=== PATIENT | male | born 1970 | race Caucasian/White ===

== ENCOUNTER 2018-03-26 18:15 | Inpatient (IN) | payer BC ==
[~2018-03-26] VITALS: Ht 193 cm; Wt 122.0 kg
[~2018-03-26 18:15] MED LIST: ATOR40TA PO; Amaryl2 MG PO; CYCL10; CYCL10 PO; Cinnamon500 MG PO; GABA300 PO; GABA600 PO; GEMF600 PO; GLIP2.5ER PO; Glucophage1000 MG PO; HYDR1TAB94; IBUP800 PO; INS70/30PN; INSULANPEN SC; K-Dur20 MEQ PO; LAVAP17G PO; LEVEMIR FL100 UNIT/1 SC; LISI5 PO; METF500; METF500 PO; METPRE4DP PO; Novolog Fl100 UNIT/1 SC; OMEP40CA12 PO; OXYC10ER; OXYC1TAB11 PO; PANT40 PO; Percocet 5-3251 EACH PO; SILD25T PO; SOMA350 MG PO; Spirulina500 MG PO; TURMERIC500 M2 PO; Vitamin B Comple1 EA PO; Zanaflex6 MG PO; [UNRECOGNIZED DRUG - OTHER] PO
[2018-03-26 19:20] LABS: BASOPHILS ABSOLUTE AUTO 0.06 K/mm3 (0.00-0.23); BASOPHILS PERCENT AUTO 0 % (0-2); EOSINOPHILS ABSOLUTE AUTO 0.15 K/mm3 (0.00-0.68); EOSINOPHILS PERCENT AUTO 1 % (0-6); Hematocrit 46.5 % (37.0-53.0); Hemoglobin 16.1 g/dL (13.5-17.5); IMMATURE GRAN ABSOLUTE AUTO 0.06 K/mm3 (0.00-0.10); IMMATURE GRAN PERCENT AUTO 0 % (0-1); LYMPHOCYTES PERCENT AUTO 21 % (21-46); MONOCYTES ABSOLUTE AUTO 0.78 K/mm3 (0.16-1.47); MONOCYTES PERCENT AUTO 5 % (4-13); Mean Corpuscular HGB 27.9 pg (26.0-34.0); Mean Corpuscular HGB Conc 34.6 g/dL (31.5-36.5); Mean Corpuscular Volume 80 fL (80-100); Mean Platelet Volume 11.1 fL (9.1-12.4); NEUTROPHILS ABSOLUTE AUTO 10.29 K/mm3 (1.96-9.15); NEUTROPHILS PERCENT AUTO 72 % (41-73); Platelet Count 233 K/mm3 (150-400); RDW Coefficient Variation 14.4 % (11.7-14.2); Red Blood Cell Count 5.78 M/mm3 (4.30-5.90); White Blood Cell Count 14.34 K/mm3 (4.00-11.30)
[2018-03-26 20:03] LABS: Alanine Aminotransfer (ALT/SGP 31 U/L (12-78); Albumin, Blood 3.7 g/dL (3.4-5.0); Albumin/Globulin Ratio 0.6 (0.8-1.8); Alk Phos 113 U/L (50-136); Anion Gap 13 mmol/L (6-16); Aspartate Aminotrans (AST/SGOT 61 U/L (12-37); Bilirubin, Total 1.2 mg/dL (0.1-1.0); Blood Urea Nitrogen 12 mg/dL (8-24); Bun/Creatinine Ratio 13.6 (12.0-20.0); CO2, Blood 21 mmol/L (21-32); Calcium, Blood 9.4 mg/dL (8.5-10.1); Chloride, Blood 99 mmol/L (98-108); Creatinine, Blood 0.88 mg/dL (0.60-1.20); Globulin, Blood 5.7 g/dL (2.2-4.0); Glomerular Filtration Rate >60 (60-); Glucose, Blood 223 mg/dL (70-99); Sodium, Blood 133 mmol/L (136-145); Total Protein, Blood 9.4 g/dL (6.4-8.2)
[2018-03-27] MEDS ORDERED: GLIP5 PO (00:59)
[2018-03-27] MEDS ORDERED: IBUP800 PO (01:00)
[2018-03-27] MEDS ORDERED: ACET500 PO (01:01)
[2018-03-27 02:10] LABS: Source, Urine Voided
[2018-03-27 02:16] LABS: Bilirubin, Urine Neg (Neg); Blood, Urine 2+ (Neg); Glucose Qualitative, Urine 2+ (Neg); Ketones, Urine 2+ (Neg); Leukocyte Esterase, Urine 1+ (Neg); Nitrite, Urine Neg (Neg); Protein, Urine 3+ (Neg); Specific Gravity, Urine 1.015 (1.003-1.022); Urobilinogen, Urine NORM (Normal)
[2018-03-27 02:22] LABS: Appearance, Urine Clear (Clear); Color, Urine Yellow (P-Yellow)
[2018-03-27 02:23] LABS: Bacteria Rare /hpf; Red Blood Cells, Urine 0-2 /hpf (0-2); Squamous Epithelial Cells Rare /hpf (Few)
[2018-03-27 04:34] LABS: BASOPHILS ABSOLUTE AUTO 0.04 K/mm3 (0.00-0.23); BASOPHILS PERCENT AUTO 0 % (0-2); EOSINOPHILS ABSOLUTE AUTO 0.18 K/mm3 (0.00-0.68); EOSINOPHILS PERCENT AUTO 1 % (0-6); Hematocrit 39.8 % (37.0-53.0); Hemoglobin 13.8 g/dL (13.5-17.5); IMMATURE GRAN ABSOLUTE AUTO 0.07 K/mm3 (0.00-0.10); IMMATURE GRAN PERCENT AUTO 1 % (0-1); LYMPHOCYTES ABSOLUTE AUTO 2.62 K/mm3 (0.84-5.20); LYMPHOCYTES PERCENT AUTO 19 % (21-46); MONOCYTES ABSOLUTE AUTO 0.95 K/mm3 (0.16-1.47); MONOCYTES PERCENT AUTO 7 % (4-13); Mean Corpuscular HGB 28.1 pg (26.0-34.0); Mean Corpuscular HGB Conc 34.7 g/dL (31.5-36.5); Mean Corpuscular Volume 81 fL (80-100); Mean Platelet Volume 10.8 fL (9.1-12.4); NEUTROPHILS ABSOLUTE AUTO 9.78 K/mm3 (1.96-9.15); NEUTROPHILS PERCENT AUTO 72 % (41-73); Platelet Count 168 K/mm3 (150-400); RDW Coefficient Variation 14.2 % (11.7-14.2); RDW Standard Deviation 41.7 fL (35.1-46.3); Red Blood Cell Count 4.91 M/mm3 (4.30-5.90); White Blood Cell Count 13.64 K/mm3 (4.00-11.30)
[2018-03-27 05:17] LABS: Triglycerides 1954 mg/dL (30-160)
[2018-03-27 06:43] LABS: Anion Gap 13 mmol/L (6-16); CO2, Blood 20 mmol/L (21-32); Chloride, Blood 106 mmol/L (98-108); Potassium, Blood 3.7 mmol/L (3.5-5.5); Sodium, Blood 139 mmol/L (136-145)
[2018-03-27 06:44] LABS: Alanine Aminotransfer (ALT/SGP 19 U/L (12-78); Albumin/Globulin Ratio 0.8 (0.8-1.8); Alk Phos 85 U/L (50-136); Aspartate Aminotrans (AST/SGOT 18 U/L (12-37); Bilirubin, Total 0.7 mg/dL (0.1-1.0); Blood Urea Nitrogen 9 mg/dL (8-24); Bun/Creatinine Ratio 11.7 (12.0-20.0); Calcium, Blood 7.8 mg/dL (8.5-10.1); Creatinine, Blood 0.77 mg/dL (0.60-1.20); Glomerular Filtration Rate >60 (60-); Glucose, Blood 190 mg/dL (70-99)
[2018-03-27 06:45] LABS: Amylase, Blood 34 U/L (25-115)
[2018-03-28 05:20] LABS: Albumin, Blood 2.7 g/dL (3.4-5.0); Anion Gap 6 mmol/L (6-16); Blood Urea Nitrogen 7 mg/dL (8-24); Bun/Creatinine Ratio 9.6 (12.0-20.0); CO2, Blood 27 mmol/L (21-32); Chloride, Blood 103 mmol/L (98-108); Creatinine, Blood 0.73 mg/dL (0.60-1.20); Glomerular Filtration Rate >60 (60-); Glucose, Blood 187 mg/dL (70-99); Phosphorus, Blood 2.4 mg/dL (2.5-4.9); Potassium, Blood 3.6 mmol/L (3.5-5.5); Sodium, Blood 136 mmol/L (136-145)
[2018-03-28 05:26] LABS: Triglycerides 1470 mg/dL (30-160)
[2018-03-28] MEDS ORDERED: ONDA4ODT SL (12:20)
== END 2018-03-28 13:29 | disposition home or self-care (01) | DRG 439 ==
LOC: ER 18:15 → MEDS 23:29 → ENPENDDIS 03-28 11:02 → MEDS 03-28 13:29
PROVIDERS: Emergency Medicine; Internal Medicine; Nurse Practitioner Acute Care
DX: K86.1 Other chronic pancreatitis (principal); K86.3 Pseudocyst of pancreas; E87.1 Hypo-osmolality and hyponatremia; E66.9 Obesity, unspecified; Z68.32 Body mass index [BMI] 32.0-32.9, adult; E78.1 Pure hyperglyceridemia; E11.9 Type 2 diabetes mellitus without complications
CPT/HCPCS: 36415; 74177; 80053; 80069; 81001; 82150; 82947; 83036; 83690; 84478; 85025; 87086; 94762; 96361; 96374; 96375; 96376; 99285-25; C9113; J1170; J1650; J2405; J3010; J7030; Q9967

== ENCOUNTER 2019-09-25 11:44 | Inpatient (IN) | payer BC ==
[~2019-09-25] VITALS: Ht 193 cm; Wt 113.4 kg
[~2019-09-25 11:44] MED LIST changes: +ACET500 PO; +GLIP5 PO; +ONDA4ODT SL
[2019-09-25 12:29] LABS: BASOPHILS ABSOLUTE AUTO 0.05 K/mm3 (0.00-0.23); BASOPHILS PERCENT AUTO 1 % (0-2); EOSINOPHILS ABSOLUTE AUTO 0.21 K/mm3 (0.00-0.68); EOSINOPHILS PERCENT AUTO 2 % (0-6); Hematocrit 44.3 % (37.0-53.0); Hemoglobin 16.5 g/dL (13.5-17.5); IMMATURE GRAN ABSOLUTE AUTO 0.06 K/mm3 (0.00-0.10); IMMATURE GRAN PERCENT AUTO 1 % (0-1); LYMPHOCYTES ABSOLUTE AUTO 2.19 K/mm3 (0.84-5.20); LYMPHOCYTES PERCENT AUTO 24 % (21-46); MONOCYTES ABSOLUTE AUTO 0.55 K/mm3 (0.16-1.47); MONOCYTES PERCENT AUTO 6 % (4-13); Mean Corpuscular HGB 30.7 pg (26.0-34.0); Mean Corpuscular HGB Conc 37.2 g/dL (31.5-36.5); Mean Corpuscular Volume 82 fL (80-100); Mean Platelet Volume 11.1 fL (9.1-12.4); NEUTROPHILS ABSOLUTE AUTO 6.07 K/mm3 (1.96-9.15); NEUTROPHILS PERCENT AUTO 67 % (41-73); Platelet Count 216 K/mm3 (150-400); RDW Coefficient Variation 14.2 % (11.7-14.2); RDW Standard Deviation 42.1 fL (35.1-46.3); Red Blood Cell Count 5.38 M/mm3 (4.30-5.90); White Blood Cell Count 9.13 K/mm3 (4.00-11.30)
[2019-09-25] MEDS ORDERED: INVOKANA300 MG PO (12:38)
[2019-09-25 13:06] LABS: Alanine Aminotransfer (ALT/SGP 36 U/L (12-78); Albumin, Blood 4.2 g/dL (3.4-5.0); Albumin/Globulin Ratio 0.9 (0.8-1.8); Alk Phos 127 U/L (50-136); Anion Gap 9 mmol/L (6-16); Aspartate Aminotrans (AST/SGOT 21 U/L (12-37); Bilirubin, Total 0.7 mg/dL (0.1-1.0); Blood Urea Nitrogen 12 mg/dL (8-24); Bun/Creatinine Ratio 18.3 (12.0-20.0); CO2, Blood 22 mmol/L (21-32); Calcium, Blood 9.6 mg/dL (8.5-10.1); Chloride, Blood 106 mmol/L (98-108); Creatinine, Blood 0.66 mg/dL (0.60-1.20); Globulin, Blood 4.9 g/dL (2.2-4.0); Glomerular Filtration Rate >60 (60-); Glucose, Blood 256 mg/dL (70-99); Potassium, Blood 4.1 mmol/L (3.5-5.5); Sodium, Blood 137 mmol/L (136-145); Total Protein, Blood 9.1 g/dL (6.4-8.2)
[2019-09-25 13:54] LABS: Magnesium, Blood 1.8 mg/dL (1.6-2.4); Triglycerides 675 mg/dL (30-160)
[2019-09-25] MEDS ORDERED: GLIP5 PO (16:16)
--- NOTE | 2019-09-25 17:57 | NUR ---
SHIFT SUMMARY NEW ER ADMIT WITH RECURRENT PANCREATITIS. NPO. PAIN MANAGED WITH DILAUDID POTATO PEELING MACHINE OPERATOR. INTERMITTENT NAUSEA, BUT NO EMESIS. IVF INFUSING PER ORDERS. SBA TO RESTROOM AND NEEDS HELP WITH LINES/CORDS. CONT BIOX IN PLACE. CALL LIGHT WITHIN REACH.
--- NOTE | 2019-09-26 00:07 | NUR ---
PATIENT BECAME NAUSEATED AND HAS BEEN DRY HEAVING FOR 10 MINS. HE DID NOT WANT ANY ANTIEMETICS AT FIRST, HAS NOW BEEN MEDICATED WITH ZOFRAN IV.
[2019-09-26 05:53] LABS: Hematocrit 43.3 % (37.0-53.0); Hemoglobin 15.2 g/dL (13.5-17.5); Mean Corpuscular HGB 29.7 pg (26.0-34.0); Mean Corpuscular HGB Conc 35.1 g/dL (31.5-36.5); Mean Platelet Volume 11.3 fL (9.1-12.4); Platelet Count 199 K/mm3 (150-400); RDW Coefficient Variation 14.6 % (11.7-14.2); Red Blood Cell Count 5.11 M/mm3 (4.30-5.90); White Blood Cell Count 12.62 K/mm3 (4.00-11.30)
[2019-09-26 05:54] LABS: Mean Corpuscular Volume 85 fL (80-100)
--- NOTE | 2019-09-26 06:41 | NUR ---
PATIENT HAD ONE OTHER EPISODE OF NAUSEA AND DRY HEAVES THIS AM. IV REGLAN WAS GIVEN WITH GOOD RESULTS. HE WAS ABLE TO HAVE A LARGE BM TODAY. HE IS VOIDING. CONTINUES WITH NPO. HE IS ABLE TO WALK TO THE BR WITHOUT ISSUES. NO ACUTE CHANGES.
[2019-09-26 08:26] LABS: Alanine Aminotransfer (ALT/SGP 25 U/L (12-78); Albumin, Blood 3.1 g/dL (3.4-5.0); Albumin/Globulin Ratio 0.8 (0.8-1.8); Alk Phos 89 U/L (50-136); Anion Gap 6 mmol/L (6-16); Aspartate Aminotrans (AST/SGOT 29 U/L (12-37); Bilirubin, Total 1.3 mg/dL (0.1-1.0); Blood Urea Nitrogen 9 mg/dL (8-24); Bun/Creatinine Ratio 18.4 (12.0-20.0); CO2, Blood 25 mmol/L (21-32); Calcium, Blood 7.2 mg/dL (8.5-10.1); Chloride, Blood 103 mmol/L (98-108); Creatinine, Blood 0.49 mg/dL (0.60-1.20); Glomerular Filtration Rate >60 (60-); Glucose, Blood 277 mg/dL (70-99); Magnesium, Blood 1.8 mg/dL (1.6-2.4); Potassium, Blood 4.1 mmol/L (3.5-5.5); Sodium, Blood 134 mmol/L (136-145); Total Protein, Blood 7.1 g/dL (6.4-8.2)
--- NOTE | 2019-09-26 18:38 | NUR ---
SUMMARY: NO ACUTE CHANGE TODAY. VSS,A/O. PT ABLE TO TOLERATE CLEAR LIQ DIET. HAS HAD NO COMPLAINT OF NAUSEA. DILAUDID ENTRY OPERATOR SEEMS TO BE MANAGING PAIN WELL. PT RESTED FOR MAJORITY OF THE DAY. NO SAFETY CONCERNS.
--- NOTE | 2019-09-26 19:36 | NUR ---
ASSUMED CARE. PT IS SLEEPING. SIG OTHER AT BEDSIDE READING. WILL RETURN WHEN PT AWAKES.
--- NOTE | 2019-09-26 21:24 | NUR ---
ASSUMED CARE OF PT, REPORT REC FROM SHAMA ECHEVARRIA. PT APPEARS TO BE SLEEPING IN BED, RESP E/U, CONT BIOX IN PLACE. WILL CONT TO MONITOR AND TX PER ORDERS.
[2019-09-27 04:52] LABS: Hematocrit 41.6 % (37.0-53.0); Hemoglobin 14.2 g/dL (13.5-17.5); Mean Corpuscular HGB 28.6 pg (26.0-34.0); Mean Corpuscular HGB Conc 34.1 g/dL (31.5-36.5); Mean Corpuscular Volume 84 fL (80-100); Mean Platelet Volume 11.1 fL (9.1-12.4); Platelet Count 172 K/mm3 (150-400); RDW Coefficient Variation 14.5 % (11.7-14.2); Red Blood Cell Count 4.96 M/mm3 (4.30-5.90); White Blood Cell Count 11.92 K/mm3 (4.00-11.30)
[2019-09-27 05:27] LABS: Albumin, Blood 2.8 g/dL (3.4-5.0); Anion Gap 10 mmol/L (6-16); Blood Urea Nitrogen 9 mg/dL (8-24); Bun/Creatinine Ratio 14.7 (12.0-20.0); CO2, Blood 20 mmol/L (21-32); Calcium, Blood 8.3 mg/dL (8.5-10.1); Chloride, Blood 109 mmol/L (98-108); Creatinine, Blood 0.61 mg/dL (0.60-1.20); Glomerular Filtration Rate >60 (60-); Glucose, Blood 185 mg/dL (70-99); Phosphorus, Blood 1.4 mg/dL (2.5-4.9); Potassium, Blood 3.6 mmol/L (3.5-5.5); Sodium, Blood 139 mmol/L (136-145)
--- NOTE | 2019-09-27 06:03 | NUR ---
PT VSS T/O NIGHT. PAIN MGD W/ACCOUNT SOLUTIONS ANALYST W/REP RELIEF. PT ALEN SMALL AMT CLEAR LIQ, NO C/O N/V. IVF CONT PER ORDERS. PT USING CALL LIGHT FOR ASSISTANCE, WILL CONT TO MONITOR UNTIL REP GIVEN TO ONCOMING RN.
--- NOTE | 2019-09-27 09:21 | NUR ---
TELE LANA'D AT [id number]
--- NOTE | 2019-09-27 18:22 | NUR ---
SUMMARY: PT SEEMED TO FEEL MUCH BETTER TODAY, TOOK A WALK AND SITTING UP IN ROOM. MEDICATED FOR PAIN X1 WITH TYLENOL. DENIED NAUSEA, TOLERATING FULL LIQ DIET. INDEPENDENT, VSS, A/O.PLAN IS POSSIBLE DC TOMORROW NO SAFETY CONCERNS AT THIS TIME.
[2019-09-28 04:49] LABS: BASOPHILS ABSOLUTE AUTO 0.06 K/mm3 (0.00-0.23); BASOPHILS PERCENT AUTO 1 % (0-2); EOSINOPHILS ABSOLUTE AUTO 0.31 K/mm3 (0.00-0.68); EOSINOPHILS PERCENT AUTO 3 % (0-6); Hematocrit 41.4 % (37.0-53.0); Hemoglobin 13.9 g/dL (13.5-17.5); IMMATURE GRAN ABSOLUTE AUTO 0.05 K/mm3 (0.00-0.10); IMMATURE GRAN PERCENT AUTO 1 % (0-1); LYMPHOCYTES ABSOLUTE AUTO 2.34 K/mm3 (0.84-5.20); LYMPHOCYTES PERCENT AUTO 23 % (21-46); MONOCYTES ABSOLUTE AUTO 0.68 K/mm3 (0.16-1.47); MONOCYTES PERCENT AUTO 7 % (4-13); Mean Corpuscular HGB 28.4 pg (26.0-34.0); Mean Corpuscular HGB Conc 33.6 g/dL (31.5-36.5); Mean Corpuscular Volume 85 fL (80-100); Mean Platelet Volume 10.9 fL (9.1-12.4); NEUTROPHILS ABSOLUTE AUTO 6.95 K/mm3 (1.96-9.15); NEUTROPHILS PERCENT AUTO 67 % (41-73); Platelet Count 173 K/mm3 (150-400); RDW Coefficient Variation 14.4 % (11.7-14.2); RDW Standard Deviation 44.1 fL (35.1-46.3); White Blood Cell Count 10.39 K/mm3 (4.00-11.30)
[2019-09-28 05:10] LABS: Alanine Aminotransfer (ALT/SGP 25 U/L (12-78); Albumin, Blood 2.7 g/dL (3.4-5.0); Albumin/Globulin Ratio 0.6 (0.8-1.8); Alk Phos 83 U/L (50-136); Anion Gap 8 mmol/L (6-16); Aspartate Aminotrans (AST/SGOT 17 U/L (12-37); Bilirubin, Total 0.7 mg/dL (0.1-1.0); Blood Urea Nitrogen 7 mg/dL (8-24); Bun/Creatinine Ratio 11.3 (12.0-20.0); CO2, Blood 22 mmol/L (21-32); Calcium, Blood 8.1 mg/dL (8.5-10.1); Chloride, Blood 106 mmol/L (98-108); Cholesterol 411 mg/dL (50-200); Creatinine, Blood 0.62 mg/dL (0.60-1.20); Globulin, Blood 4.7 g/dL (2.2-4.0); Glomerular Filtration Rate >60 (60-); Glucose, Blood 219 mg/dL (70-99); Potassium, Blood 3.5 mmol/L (3.5-5.5); Sodium, Blood 136 mmol/L (136-145); Total Protein, Blood 7.4 g/dL (6.4-8.2)
[2019-09-28 05:23] LABS: CHOL/HDL RATIO Unable to Calculate; LDL/HDL RATIO Unable to Calculate; Low Density Lipoprotein Chol Unable to Calculate mg/dL (0-110); Triglycerides 1003 mg/dL (30-160); Very Low Density Lipoprot Chol 201 mg/dL (6-32)
--- NOTE | 2019-09-28 06:31 | NUR ---
PT VSS T/O NIGHT. PT REP PAIN MINIMAL, MGD W/TYLENOL W/REP RELIEF. PT ALEN FULL LIQ PO, W/NO INC PAIN AFTER EATING. PT REP +FLATUS AND BM, IS VOIDING URINE W/O DIFFICULTY. PT UP INDEL IN ROOM, IS USING CALL LIGHT FOR ASSISTANCE, WILL CONT TO MONITOR UNTIL REP GIVEN TO ONCOMIGN RN.
[2019-09-28] MEDS ORDERED: ATOR20 PO (11:33)
[2019-09-28] MEDS ORDERED: Fenofibrate134 MG PO (11:33)
--- NOTE | 2019-09-28 13:12 | NUR ---
DISCHARGE PT EDUCATED ON AND RECEIVED PRINTED DC INSTRUCTIONS AND VERB AN UNDERSTANDING. NEW RX FAXED TO [facility]. IV DC'D. PT WAITING FOR RIDE HOME AND HAS ALL PERSONAL BELONGINGS.
== END 2019-09-28 14:21 | disposition home or self-care (01) | DRG 440 ==
LOC: ER 11:44 → SURS 15:47
PROVIDERS: Emergency Medicine; Internal Medicine; Nurse Practitioner Acute Care; ADMIT Family Medicine
DX: K85.90 Acute pancreatitis without necrosis or infection, unspecified (principal); I10 Essential (primary) hypertension; E11.69 Type 2 diabetes mellitus with other specified complication; E78.1 Pure hyperglyceridemia; E78.5 Hyperlipidemia, unspecified
CPT/HCPCS: 36415; 74019; 80053; 80061; 80069; 82947; 83036; 83605; 83690; 83735; 84478; 85025; 85027; 93005; 93010; 94762; 96372-59; 96374; 96375; 96376; 99285-25; A9270; J1170; J1650; J2405; J2765; J7030

== ENCOUNTER 2021-04-28 19:58 | Emergency (ER) | payer BC ==
[~2021-04-28] VITALS: Ht 193 cm; Wt 117.9 kg
[~2021-04-28 19:58] MED LIST changes: +ATOR20 PO; +Fenofibrate134 MG PO; +INVOKANA300 MG PO
[2021-04-28] MEDS ORDERED: BENZ100A PO (20:55)
== END 2021-04-28 21:09 | disposition home or self-care (01) ==
LOC: ER 19:58
DX: U07.1 COVID-19 (principal); E11.9 Type 2 diabetes mellitus without complications; Z88.8 Allergy status to other drugs, medicaments and biological substances; Z91.09 Other allergy status, other than to drugs and biological substances; Z79.84 Long term (current) use of oral hypoglycemic drugs; Z79.899 Other long term (current) drug therapy; Z87.891 Personal history of nicotine dependence
CPT/HCPCS: 99283; A9270

== ENCOUNTER 2021-05-03 14:08 | Inpatient (IN) | payer BC ==
[~2021-05-03] VITALS: Ht 193 cm; Wt 109.1 kg
[~2021-05-03 14:08] MED LIST changes: +BENZ100A PO
[2021-05-03 15:16] LABS: Hematocrit 41.7 % (37.0-53.0); Hemoglobin 14.1 g/dL (13.5-17.5); Mean Corpuscular HGB 27.2 pg (26.0-34.0); Mean Corpuscular HGB Conc 33.8 g/dL (31.5-36.5); Mean Corpuscular Volume 81 fL (80-100); Mean Platelet Volume 11.1 fL (9.1-12.4); NRBC ABSOLUTE 0.04 K/mm3 (0.00-0.02); NRBC Auto 0.4 /100 WBC (0.0-0.2); Platelet Count 236 K/mm3 (150-400); RDW Coefficient Variation 14.1 % (11.7-14.2); RDW Standard Deviation 41.9 fL (35.1-46.3); Red Blood Cell Count 5.18 M/mm3 (4.30-5.90); White Blood Cell Count 11.39 K/mm3 (4.00-11.30)
[2021-05-03 15:33] LABS: Alanine Aminotransfer (ALT/SGP 42 U/L (12-78); Albumin, Blood 2.6 g/dL (3.4-5.0); Albumin/Globulin Ratio 0.5 (0.8-1.8); Alk Phos 90 U/L (50-136); Anion Gap 12 mmol/L (6-16); Aspartate Aminotrans (AST/SGOT 31 U/L (12-37); Bilirubin, Total 0.7 mg/dL (0.1-1.0); Blood Urea Nitrogen 24 mg/dL (8-24); Bun/Creatinine Ratio 38.8 (12.0-20.0); CO2, Blood 23 mmol/L (21-32); Calcium, Blood 8.6 mg/dL (8.5-10.1); Chloride, Blood 99 mmol/L (98-108); Creatinine, Blood 0.62 mg/dL (0.60-1.20); Globulin, Blood 5.3 g/dL (2.2-4.0); Glomerular Filtration Rate >60 (60-); Glucose, Blood 326 mg/dL (70-99); Potassium, Blood 4.3 mmol/L (3.5-5.5); Sodium, Blood 134 mmol/L (136-145); Total Protein, Blood 7.9 g/dL (6.4-8.2)
[2021-05-03 16:19] LABS: BASOPHILS PERCENT MAN 0 % (0-2); EOSINOPHILS PERCENT MAN 0 % (0-6); LYMPHOCYTES % ATYPICAL MANUAL 2 % (0-0); LYMPHOCYTES PERCENT MAN 20 % (21-46); METAMYELOCYTE ABSOLUTE MAN 0.45 K/mm3 (0.00-0.00); METAMYELOCYTE PERCENT MAN 4 % (0-0); MONOCYTES ABSOLUTE MAN 0.22 K/mm3 (0.16-1.47); MONOCYTES PERCENT MAN 2 % (4-13); MYELOCYTE ABSOLUTE MAN 0.34 K/mm3 (0.00-0.00); MYELOCYTE PERCENT MAN 3 % (0-0); NEUTROPHILS ABSOLUTE MAN 7.85 K/mm3 (1.96-9.15); SEG NEUTROPHILS PERCENT MAN 69 % (41-73); TOTAL CELLS COUNTED 100
[2021-05-03] MEDS ORDERED: HUMALOG KW100 UNIT/1 SC (19:58)
[2021-05-04 05:36] LABS: Hematocrit 44.5 % (37.0-53.0); Hemoglobin 14.6 g/dL (13.5-17.5); Mean Corpuscular HGB 27.5 pg (26.0-34.0); Mean Corpuscular HGB Conc 32.8 g/dL (31.5-36.5); Mean Corpuscular Volume 84 fL (80-100); Mean Platelet Volume 10.9 fL (9.1-12.4); NRBC ABSOLUTE 0.02 K/mm3 (0.00-0.02); NRBC Auto 0.2 /100 WBC (0.0-0.2); Platelet Count 273 K/mm3 (150-400); RDW Coefficient Variation 14.3 % (11.7-14.2); RDW Standard Deviation 43.5 fL (35.1-46.3); White Blood Cell Count 10.55 K/mm3 (4.00-11.30)
[2021-05-04 06:02] LABS: Alanine Aminotransfer (ALT/SGP 36 U/L (12-78); Albumin, Blood 2.6 g/dL (3.4-5.0); Albumin/Globulin Ratio 0.5 (0.8-1.8); Alk Phos 92 U/L (50-136); Anion Gap 12 mmol/L (6-16); Aspartate Aminotrans (AST/SGOT 26 U/L (12-37); Bilirubin, Total 0.8 mg/dL (0.1-1.0); Blood Urea Nitrogen 27 mg/dL (8-24); Bun/Creatinine Ratio 45.9 (12.0-20.0); CO2, Blood 22 mmol/L (21-32); Calcium, Blood 8.9 mg/dL (8.5-10.1); Chloride, Blood 100 mmol/L (98-108); Creatinine, Blood 0.59 mg/dL (0.60-1.20); Globulin, Blood 5.6 g/dL (2.2-4.0); Glomerular Filtration Rate >60 (60-); Glucose, Blood 333 mg/dL (70-99); Potassium, Blood 4.4 mmol/L (3.5-5.5); Sodium, Blood 134 mmol/L (136-145); Total Protein, Blood 8.2 g/dL (6.4-8.2)
[2021-05-04 06:05] LABS: BAND PERCENT MAN 7 % (0-8); BASOPHILS PERCENT MAN 0 % (0-2); EOSINOPHILS PERCENT MAN 1 % (0-6); LYMPHOCYTES % ATYPICAL MANUAL 1 % (0-0); LYMPHOCYTES ABSOLUTE MAN 2.42 K/mm3 (0.84-5.20); LYMPHOCYTES PERCENT MAN 22 % (21-46); METAMYELOCYTE ABSOLUTE MAN 0.21 K/mm3 (0.00-0.00); METAMYELOCYTE PERCENT MAN 2 % (0-0); MONOCYTES ABSOLUTE MAN 0.52 K/mm3 (0.16-1.47); MONOCYTES PERCENT MAN 5 % (4-13); MYELOCYTE ABSOLUTE MAN 0.31 K/mm3 (0.00-0.00); MYELOCYTE PERCENT MAN 3 % (0-0); NEUTROPHILS ABSOLUTE MAN 6.96 K/mm3 (1.96-9.15); SEG NEUTROPHILS PERCENT MAN 59 % (41-73); TOTAL CELLS COUNTED 100
--- NOTE | 2021-05-04 19:16 | NUR ---
SHIFT SUMMARY PT IS AO. PT DENIES PAIN, N/V, SOB. PT TO HAVE CT STUDY AFTE AC IV ACCESS OBTAINED. PT REMAINS ON 8 L O2 VIA OXYMIZER. ENHANCED ISOLATION PRECAUTIONS MAINTAINED T/O SHIFT. PT IS SBA IN ROOM. PT IS IN BED, CALL LIGHT IN REACH, LOW POSITION.
--- NOTE | 2021-05-05 05:48 | NUR ---
SHIFT SUMMARY A/OX4, ANXIOUS R/T INCREASED OXYGEN NEEDS. CURRENTLY ON 15L NRB AND HIFLOW NC. ATTEMPTED TO WEAN OFF NRB WITH SATS DECREASING TO MID 80S. WILL CONTINUE TO MONITOR AND REPORT TO ONCOMING RN.
--- NOTE | 2021-05-05 19:38 | NUR ---
SHIFT SUMMARY PT IS AOX4 AND PLEASANT. PT HAD CT TODAY. PT IS ON 10 L HIGH FLOW VIA NC WITH SATS GREATER THAN 90%. PT DENIES PAIN, N/V, SOB. ENHANCED ISOLATION PRECAUTIONS MAINTAINED T/O SHIFT. PT ONE ASSIST TO BCC. PT IS IN BED, CALL LIGHT IN REACH, LOW POSITION.
--- NOTE | 2021-05-06 05:25 | NUR ---
SHIFT SUMMARY NO ACUTE CHANGES THIS SHIFT, NO C/O ANY KIND, REMAINS ON 10L O2 MAINT[place] SATS MID 90'S T/O THE NIGHT, SLEPT T/O THE NIGHT & SLEEPING AT THIS TIME, CALL LIGHT IN REACH, WILL CONT TO MONITOR UNTIL REPORT GIVEN TO DAY RN.
--- NOTE | 2021-05-06 07:15 | NUR ---
ASSUMED CARE RECEIVED REPORT FROM SHAMA PRABHAKAR. PT RESTING, IN NAD. NO ACUTE NEEDS ASSESSED. CALL LIGHT IN [facility].
--- NOTE | 2021-05-06 14:45 | NUR ---
TRANSFER OF CARE REPORT GIVEN TO SHAMA SMALLS. PT RESTING, IN NAD. NO ACUTE NEEDS OR CONCERNS NOTED. CALL LIGHT, POSSESSIONS IN REACH.
--- NOTE | 2021-05-07 04:38 | NUR ---
SHIFT SUMMARY NO ACUTE CHANGES THIS SHIFT, NO C/O ANY KIND, VSS, CBS'S REMAIN HIGH- REC ORDER FOR 4U AT BEDTIME FOR TDZ=918, SLEPT T/O THE NIGHT & SLEEPING AT THIS TIME, CALL LIGHT IN REACH, WILL CONT TO MONITOR UNTIL REPORT GIVEN TO DAY RN.
--- NOTE | 2021-05-07 14:31 | NUR ---
Spiritual Care visit conducted. Provided conversation and companionship. The patient was appreciative of both as he said he is "getting stir crazy" and has a lot to do once he gets out of the hospital, as he has been contemplating some sizable life adjustments.
--- NOTE | 2021-05-07 19:22 | NUR ---
PATIENT IS ALERT AND ORIENTED. ON 8L O2 VIA NC. INDPENDENT TO BSC. NO C/O LEDBETTER.
--- NOTE | 2021-05-08 06:38 | NUR ---
SHIFT SUMMARY ASSUMED CARE OF PT AT 1900. PT IS A/OX4. HEART SOUNDS REGULAR, LUNG SOUNDS HAVE CRACKLES T/O. PT WAS TITRATED DOWN FROM 10L TO 6L NC. SATURATIONS REMAINED ABOVE 95%. PT USED THE URINAL. CALL LIGHT IN REACH, BED IN LOWEST POSITON.
[2021-05-08] MEDS ORDERED: INSULANPEN SC (09:48)
[2021-05-08] MEDS ORDERED: GUAI600T33 PO (09:48)
[2021-05-08] MEDS ORDERED: Aspir 8181 MG PO (09:48)
[2021-05-08] MEDS ORDERED: FAMO20 PO (09:48)
[2021-05-08] MEDS ORDERED: DECADRON6 M1 PO (09:49)
--- NOTE | 2021-05-08 10:43 | NUR ---
HOME O2 EVALUATION PT SATURATIONS 88% WHILE SITTING AT THE BEDSIDE ON RA. SATURATIONS DROPPED TO 84% WHILE WALKING ON RA. PT SATURATIONS 86% WHILE ON 2 L O2 VIA NC SITTING AT THE BEDSIDE. PT SATURATIONS 88% WHILE ON 4 L 02 VIA NC SITTING AT THE BEDSIDE. PT SATURATIONS 90% WHILE ON 6 L 02 VIA NC WHILE SITTING AT THE BEDSIDE FOR 5 MINUTES ON O2. PT SATURATIONS 92% WHILE ON 8 L O2 VIA NC WHILE SITTING AT THE BEDSIDE.
--- NOTE | 2021-05-08 11:38 | NUR ---
HOME 02 EVAL- PT RESTING IN BED OXYGEN TURNED OFF AT THIS TIME. PT SATS AT 88% ON ROOM AIR. 1L- 89%, 2L-89%, 3L 89%, 4L 89%, 5L 89% AND 6L 90%. PT AMBULATED IN ROOM ON 6L WITH SATS 89-90%.
--- NOTE | 2021-05-08 14:37 | NUR ---
PT DISCHARGE PT IS AOX4. PT IV REMOVED FROM LEFT AC PRIOR TO DC. DC INSTRUCTIONS REVIEWED WITH PT WHO VERBALIZED UNDERSTANDING. PT BELONGINGS GATHERED. PT DRESSED SELF IN HOME CLOTHING. PT ASSISTED OFF UNIT IN WHEELCHAIR. PT HAS LEFT BUILDING WITH HOME O2 TO PRIVATE VEHICLE.
== END 2021-05-08 14:09 | disposition home or self-care (01) | DRG 177 ==
LOC: ER 14:08 → MEDS 19:49
PROVIDERS: Physician Assistant; ADMIT Internal Medicine
PROC: 8E0ZXY6 Isolation (ICD-10-PCS; principal; 2021-05-03)
PROC: 3E0333Z Introduction of Anti-inflammatory into Peripheral Vein, Percutaneous Approach (ICD-10-PCS; 2021-05-04)
PROC: XW033E5 Introduction of Remdesivir Anti-infective into Peripheral Vein, Percutaneous Approach, New Technology Group 5 (ICD-10-PCS; 2021-05-04)
PROC: 5A0935A Assistance with Respiratory Ventilation, Less than 24 Consecutive Hours, High Flow/Velocity Cannula (ICD-10-PCS; 2021-05-05)
DX: U07.1 COVID-19 (principal); J12.82 Pneumonia due to coronavirus disease 2019; J96.01 Acute respiratory failure with hypoxia; J44.0 Chronic obstructive pulmonary disease with (acute) lower respiratory infection; E78.5 Hyperlipidemia, unspecified; R79.89 Other specified abnormal findings of blood chemistry; Z87.891 Personal history of nicotine dependence; Z90.49 Acquired absence of other specified parts of digestive tract; Z98.890 Other specified postprocedural states; Z79.84 Long term (current) use of oral hypoglycemic drugs; Z79.899 Other long term (current) drug therapy; Z88.8 Allergy status to other drugs, medicaments and biological substances; Z91.09 Other allergy status, other than to drugs and biological substances; I10 Essential (primary) hypertension; E11.65 Type 2 diabetes mellitus with hyperglycemia; R79.1 Abnormal coagulation profile
CPT/HCPCS: 36415; 71045; 71260; 80053; 82947; 83036; 84484; 85025; 85379; 86140; 93005; 93010; 94762; 96365; 96375; 99285-25; A9270; J1100; J1650; Q9967

== ENCOUNTER 2021-09-09 09:05 | Emergency (ER) | payer BC ==
[~2021-09-09] VITALS: Ht 193 cm; Wt 127.0 kg
[~2021-09-09 09:05] MED LIST changes: +Aspir 8181 MG PO; +DECADRON6 M1 PO; +FAMO20 PO; +GUAI600T33 PO; +HUMALOG KW100 UNIT/1 SC
[2021-09-09 10:01] LABS: Troponin I <0.015 ng/mL (0.000-0.040)
[2021-09-09 10:07] LABS: BASOPHILS ABSOLUTE AUTO 0.07 K/mm3 (0.00-0.23); BASOPHILS PERCENT AUTO 1 % (0-2); EOSINOPHILS ABSOLUTE AUTO 0.27 K/mm3 (0.00-0.68); EOSINOPHILS PERCENT AUTO 3 % (0-6); Hematocrit 43.8 % (37.0-53.0); Hemoglobin 15.1 g/dL (13.5-17.5); IMMATURE GRAN ABSOLUTE AUTO 0.07 K/mm3 (0.00-0.10); IMMATURE GRAN PERCENT AUTO 1 % (0-1); LYMPHOCYTES ABSOLUTE AUTO 3.44 K/mm3 (0.84-5.20); LYMPHOCYTES PERCENT AUTO 38 % (21-46); MONOCYTES ABSOLUTE AUTO 0.58 K/mm3 (0.16-1.47); MONOCYTES PERCENT AUTO 6 % (4-13); Mean Corpuscular HGB 28.6 pg (26.0-34.0); Mean Corpuscular HGB Conc 34.5 g/dL (31.5-36.5); Mean Corpuscular Volume 83 fL (80-100); Mean Platelet Volume 10.9 fL (9.1-12.4); NEUTROPHILS ABSOLUTE AUTO 4.66 K/mm3 (1.96-9.15); NEUTROPHILS PERCENT AUTO 51 % (41-73); Platelet Count 259 K/mm3 (150-400); RDW Standard Deviation 42.3 fL (35.1-46.3); Red Blood Cell Count 5.28 M/mm3 (4.30-5.90); White Blood Cell Count 9.09 K/mm3 (4.00-11.30)
[2021-09-09 10:48] LABS: Alanine Aminotransfer (ALT/SGP 40 U/L (12-78); Albumin, Blood 3.5 g/dL (3.4-5.0); Albumin/Globulin Ratio 0.8 (0.8-1.8); Alk Phos 114 U/L (50-136); Anion Gap 12 mmol/L (6-16); Aspartate Aminotrans (AST/SGOT 23 U/L (12-37); Bilirubin, Total 0.6 mg/dL (0.1-1.0); Blood Urea Nitrogen 17 mg/dL (8-24); Bun/Creatinine Ratio 31.8 (12.0-20.0); CO2, Blood 22 mmol/L (21-32); Calcium, Blood 8.7 mg/dL (8.5-10.1); Chloride, Blood 100 mmol/L (98-108); Creatinine, Blood 0.53 mg/dL (0.60-1.20); Globulin, Blood 4.4 g/dL (2.2-4.0); Glomerular Filtration Rate >60 (60-); Glucose, Blood 357 mg/dL (70-99); Potassium, Blood 3.9 mmol/L (3.5-5.5); Sodium, Blood 134 mmol/L (136-145); Total Protein, Blood 7.9 g/dL (6.4-8.2)
[2021-09-09] MEDS ORDERED: Omeprazole20 M1 PO (11:27)
== END 2021-09-09 12:01 | disposition home or self-care (01) ==
LOC: ER 09:05
PROVIDERS: Physician Assistant
DX: R07.9 Chest pain, unspecified (principal); E11.9 Type 2 diabetes mellitus without complications; E78.5 Hyperlipidemia, unspecified; I10 Essential (primary) hypertension; Z88.8 Allergy status to other drugs, medicaments and biological substances; Z79.4 Long term (current) use of insulin; Z79.899 Other long term (current) drug therapy; Z79.82 Long term (current) use of aspirin
CPT/HCPCS: 36415; 71046; 80053; 84484; 85025; 93005; 93010; 99284-25; A9270

== ENCOUNTER 2021-11-02 14:41 | Inpatient (IN) | payer BC ==
[~2021-11-02] VITALS: Ht 193 cm; Wt 126.7 kg
[~2021-11-02 14:41] MED LIST changes: +Omeprazole20 M1 PO
[2021-11-02 15:42] LABS: BASOPHILS ABSOLUTE AUTO 0.07 K/mm3 (0.00-0.23); BASOPHILS PERCENT AUTO 1 % (0-2); EOSINOPHILS ABSOLUTE AUTO 0.02 K/mm3 (0.00-0.68); EOSINOPHILS PERCENT AUTO 0 % (0-6); Hematocrit 46.6 % (37.0-53.0); Hemoglobin 16.6 g/dL (13.5-17.5); IMMATURE GRAN ABSOLUTE AUTO 0.07 K/mm3 (0.00-0.10); IMMATURE GRAN PERCENT AUTO 1 % (0-1); LYMPHOCYTES ABSOLUTE AUTO 1.31 K/mm3 (0.84-5.20); LYMPHOCYTES PERCENT AUTO 9 % (21-46); MONOCYTES ABSOLUTE AUTO 0.82 K/mm3 (0.16-1.47); MONOCYTES PERCENT AUTO 5 % (4-13); Mean Corpuscular HGB 28.5 pg (26.0-34.0); Mean Corpuscular HGB Conc 35.6 g/dL (31.5-36.5); Mean Corpuscular Volume 80 fL (80-100); Mean Platelet Volume 11.2 fL (9.1-12.4); NEUTROPHILS ABSOLUTE AUTO 13.19 K/mm3 (1.96-9.15); NEUTROPHILS PERCENT AUTO 85 % (41-73); Platelet Count 214 K/mm3 (150-400); RDW Coefficient Variation 14.2 % (11.7-14.2); RDW Standard Deviation 41.1 fL (35.1-46.3); Red Blood Cell Count 5.83 M/mm3 (4.30-5.90); White Blood Cell Count 15.48 K/mm3 (4.00-11.30)
[2021-11-02 16:53] LABS: Alanine Aminotransfer (ALT/SGP 41 U/L (12-78); Albumin, Blood 3.7 g/dL (3.4-5.0); Albumin/Globulin Ratio 0.7 (0.8-1.8); Alk Phos 111 U/L (50-136); Anion Gap 10 mmol/L (6-16); Aspartate Aminotrans (AST/SGOT 51 U/L (12-37); Bilirubin, Total 1.2 mg/dL (0.1-1.0); Blood Urea Nitrogen 12 mg/dL (8-24); Bun/Creatinine Ratio 27.6 (12.0-20.0); CO2, Blood 21 mmol/L (21-32); Chloride, Blood 98 mmol/L (98-108); Creatinine, Blood 0.43 mg/dL (0.60-1.20); Globulin, Blood 5.4 g/dL (2.2-4.0); Glomerular Filtration Rate >60 (60-); Glucose, Blood 387 mg/dL (70-99); Sodium, Blood 129 mmol/L (136-145); Total Protein, Blood 9.1 g/dL (6.4-8.2)
[2021-11-02 16:54] LABS: Potassium, Blood 4.9 mmol/L (3.5-5.5)
[2021-11-02 17:32] LABS: Source, Urine Clean Catch
[2021-11-02 17:35] LABS: Bilirubin, Urine Neg (Neg); Blood, Urine 1+ (Neg); Glucose Qualitative, Urine 4+ (Neg); Ketones, Urine 4+ (Neg); Leukocyte Esterase, Urine Neg (Neg); Nitrite, Urine Neg (Neg); Protein, Urine 3+ (Neg); Urobilinogen, Urine NORM (Normal)
[2021-11-02 17:41] LABS: Appearance, Urine Cloudy (Clear); Color, Urine Pale Yellow (P-Yellow)
[2021-11-02 17:42] LABS: Amorphous Light (0-Heavy); Bacteria Few /hpf; Mucus Light (0-Heavy); Squamous Epithelial Cells Rare /hpf (Few); White Blood Cells, Urine 0-2 /hpf (0-5)
[2021-11-02 19:26] LABS: Cholesterol 614 mg/dL (50-200); Triglycerides 2745 mg/dL (30-160)
[2021-11-02 20:05] LABS: Influenza A, PCR NEGATIVE (NEGATIVE); Influenza B, PCR NEGATIVE (NEGATIVE); Resp Syncytial Virus, PCR NEGATIVE (NEGATIVE); SARS-Cov-2 (COVID-19) PCR, MMC NEGATIVE (NEGATIVE)
--- NOTE | 2021-11-02 20:25 | NUR ---
ARRIVAL TO ICU PT BROUGHT TO ICU ON ED GURNEY. PT IS ABLE TO MOVE SELF FROM ED GURNEY TO ICU BED. HE IS ALERT AND ORIENTED. SPOUSE MAYE IS WITH HIM. CBG CHECKED AND INSULIN GTT STARTED AT 4UNITS/HR. C/O ABDOMINAL PAIN THROUGHOUT BUT WORSE PAIN IN LUQ AND LLQ. ABDOMEN DISTENDED AND FIRM/TENDER TO TOUCH. PT DENIES OTHER COMPLAINTS AT THIS TIME. HISTORY GATHERED FROM PT AND SPOUSE. VSS AT THIS TIME. SEE ASSESSMENT.
--- NOTE | 2021-11-02 21:32 | NUR ---
BELONGINGS MAYE TOOK PT'S DENTURES, WALLET AND WATCH HOME. OTHER BELONGINGS IN CUPBOARD.
--- NOTE | 2021-11-03 01:51 | NUR ---
UPDATE PT AWAKE AND SITTING AT EDGE OF BED. C/O NAUSEA AND BEGINS DRY HEAVING. MEDICATED WITH ZOFRAN PER EMAR. PT REMAINS ALERT AND ORIENTED. VERY PLEASANT AND PARTICIPATES IN CONVERSATION. PT IS KNOWLEDGEABLE ABOUT HIS HEALTH HISTORY AND CONDITION. HE DISCUSSES HOW SIMILAR TREATMENT PLAN WAS DONE DURING LAST ADMISSION. PT EXPRESSES FRUSTRATION REGARDING CUSTOMER SERVICES MANAGER CARE OPTIONS AND FEELING HIS CONCERNS ARE NOT ALWAYS HEARD. NAUSEA HAS RESOLVED AND PT LYING DOWN, DENIES ADDITIONAL NEEDS AT THIS TIME.
[2021-11-03 03:46] LABS: BASOPHILS ABSOLUTE AUTO 0.05 K/mm3 (0.00-0.23); BASOPHILS PERCENT AUTO 1 % (0-2); EOSINOPHILS ABSOLUTE AUTO 0.01 K/mm3 (0.00-0.68); EOSINOPHILS PERCENT AUTO 0 % (0-6); Hematocrit 44.1 % (37.0-53.0); Hemoglobin 15.4 g/dL (13.5-17.5); IMMATURE GRAN ABSOLUTE AUTO 0.03 K/mm3 (0.00-0.10); IMMATURE GRAN PERCENT AUTO 0 % (0-1); LYMPHOCYTES ABSOLUTE AUTO 1.53 K/mm3 (0.84-5.20); LYMPHOCYTES PERCENT AUTO 14 % (21-46); MONOCYTES ABSOLUTE AUTO 0.93 K/mm3 (0.16-1.47); MONOCYTES PERCENT AUTO 9 % (4-13); Mean Corpuscular HGB 27.9 pg (26.0-34.0); Mean Corpuscular HGB Conc 34.9 g/dL (31.5-36.5); Mean Corpuscular Volume 80 fL (80-100); Mean Platelet Volume 11.1 fL (9.1-12.4); NEUTROPHILS ABSOLUTE AUTO 8.17 K/mm3 (1.96-9.15); NEUTROPHILS PERCENT AUTO 76 % (41-73); Platelet Count 196 K/mm3 (150-400); RDW Coefficient Variation 14.3 % (11.7-14.2); RDW Standard Deviation 41.8 fL (35.1-46.3); Red Blood Cell Count 5.52 M/mm3 (4.30-5.90); White Blood Cell Count 10.72 K/mm3 (4.00-11.30)
[2021-11-03 04:30] LABS: Alanine Aminotransfer (ALT/SGP 55 U/L (12-78); Albumin, Blood 3.1 g/dL (3.4-5.0); Albumin/Globulin Ratio 0.8 (0.8-1.8); Alk Phos 75 U/L (50-136); Anion Gap 7 mmol/L (6-16); Aspartate Aminotrans (AST/SGOT 27 U/L (12-37); Bilirubin, Total 0.9 mg/dL (0.1-1.0); Blood Urea Nitrogen 14 mg/dL (8-24); Bun/Creatinine Ratio 25.7 (12.0-20.0); CO2, Blood 25 mmol/L (21-32); Calcium, Blood 7.6 mg/dL (8.5-10.1); Chloride, Blood 105 mmol/L (98-108); Creatinine, Blood 0.54 mg/dL (0.60-1.20); Globulin, Blood 3.7 g/dL (2.2-4.0); Glomerular Filtration Rate >60 (60-); Glucose, Blood 273 mg/dL (70-99); Potassium, Blood 3.3 mmol/L (3.5-5.5); Sodium, Blood 137 mmol/L (136-145)
[2021-11-03 04:32] LABS: Total Protein, Blood 6.8 g/dL (6.4-8.2)
[2021-11-03 05:09] LABS: Triglycerides 1941 mg/dL (30-160)
--- NOTE | 2021-11-03 05:54 | NUR ---
SHIFT SUMMARY PT REMAINS ALERT AND ORIENTED. HE HAS HAD CONTINUOUS ABDOMINAL PAIN THROUGHOUT NIGHT AND A FEW EPISODES OF NAUSEA. INSULIN GTT INFUSING AT 7UNITS/HR AND NS 100ML/HR. PLAN TO INFUSE 60MEQ KCL DUE TO POTASSIUM LEVEL THIS AM. PT REPOSITIONS SELF INDEPENDENTLY, SITS ON EDGE OF BED TO USE URINAL. WILL REPORT TO ONCOMING RN.
[2021-11-03] MEDS ORDERED: OMEP20ER PO (10:50)
[2021-11-03] MEDS ORDERED: FENO145 PO (10:50)
[2021-11-03] MEDS ORDERED: GLIP10ER PO (10:51)
[2021-11-03] MEDS ORDERED: ROSU10TA PO (10:51)
--- NOTE | 2021-11-03 12:13 | NUR ---
REASSESSMENT PT HAS BEEN RESTING IN BED THROUGHOUT THE MORNING, RESPOSITIONING HIMSELF. HIS PAIN HAS BEEN CONTROLLED WITH FENTANYL AND DILAUDID. LUNGS REMAIN CLEAR, ON RA. SR, BP STABLE. VOIDING INDEPENDENTLY. GOT MED LIST FROM PT'S THIS MORNING AND MED REC UPDATED. DR. ELLISON AND RONALD HAVE BEEN BY TO SEE PT. CONTINUE TO MONITOR.
[2021-11-03] MEDS ORDERED: TRESIBA FL200 UNIT/2 SQ (12:15)
[2021-11-03] MEDS ORDERED: GABA100 PO (12:16)
[2021-11-03] MEDS ORDERED: GEMF600 PO (12:17)
[2021-11-03] MEDS ORDERED: FISH OIL 1,2001 EAC1 PO (12:17)
[2021-11-03] MEDS ORDERED: LEVSOD112 PO (12:18)
[2021-11-03 14:20] LABS: Anion Gap 7 mmol/L (6-16); Blood Urea Nitrogen 11 mg/dL (8-24); CO2, Blood 23 mmol/L (21-32); Chloride, Blood 112 mmol/L (98-108); Creatinine, Blood 0.69 mg/dL (0.60-1.20); Glomerular Filtration Rate >60 (60-); Glucose, Blood 178 mg/dL (70-99); Potassium, Blood 3.8 mmol/L (3.5-5.5)
[2021-11-03 14:22] LABS: Sodium, Blood 142 mmol/L (136-145)
--- NOTE | 2021-11-03 16:45 | NUR ---
SHIFT SUMMARY PT HAS CONTINUED TO REST IN BED THROUGHOUT THE DAY. HE IS ABLE TO TURN FROM SIDE TO SIDE INDEPENDENTLY AND HAS BEEN DOING SO THROUGHOUT THE DAY. HE REMAINS ALERT AND ORIENTED. LUNGS CLEAR, RA, SR, BP STABLE. HE CONTINUES TO HAVE ABDOMINAL PAIN WHICH IS BEING TREATED WITH FENTANYL AND DILAUDID. HE IS VOIDING INDEPENDENTLY. INSULIN GTT STILL INFUSING, D5 1/2NS BEING TITRATED TO MAINTAIN BLOOD SUGARS 150-200. PT'S VISITED TODAY AND WAS UPDATED BY NURSING STAFF AND DR. BERMEO. 30 MINUTES SPENT IN THE ROOM WITH HER AND PT DISCUSSING PANCREATITIS, TRIGLYCERIDES, INSULIN TREATMENT FOR TRIGLYCERIDES, AND DIET.
[2021-11-03 17:56] LABS: Cholesterol 428 mg/dL (50-200); Triglycerides 1189 mg/dL (30-160)
--- NOTE | 2021-11-03 19:00 | NUR ---
ASSUMPTION OF CARE PT REMAINS ALERT AND ORIENTED. HE IS RECEIVING LR 100ML/HR, INSULIN GTT 8UNITS/HR, AND D5 1/2NS AT 140ML/HR. D5 1/2NS TO BE TITRATED ACCORDING TO CBGS TO KEEP INSULIN AT 8UNITS/HR. HE CONTINUES TO HAVE ABDOMINAL PAIN, DENIES OTHER DISCOMFORT. SEE SHIFT ASSESSMENT.
[2021-11-04 05:05] LABS: BASOPHILS ABSOLUTE AUTO 0.05 K/mm3 (0.00-0.23); BASOPHILS PERCENT AUTO 1 % (0-2); EOSINOPHILS ABSOLUTE AUTO 0.17 K/mm3 (0.00-0.68); EOSINOPHILS PERCENT AUTO 2 % (0-6); Hematocrit 38.7 % (37.0-53.0); Hemoglobin 13.1 g/dL (13.5-17.5); IMMATURE GRAN ABSOLUTE AUTO 0.03 K/mm3 (0.00-0.10); IMMATURE GRAN PERCENT AUTO 0 % (0-1); LYMPHOCYTES ABSOLUTE AUTO 2.07 K/mm3 (0.84-5.20); LYMPHOCYTES PERCENT AUTO 23 % (21-46); MONOCYTES ABSOLUTE AUTO 0.78 K/mm3 (0.16-1.47); MONOCYTES PERCENT AUTO 9 % (4-13); Mean Corpuscular HGB 27.9 pg (26.0-34.0); Mean Corpuscular HGB Conc 33.9 g/dL (31.5-36.5); Mean Corpuscular Volume 82 fL (80-100); Mean Platelet Volume 11.2 fL (9.1-12.4); NEUTROPHILS ABSOLUTE AUTO 5.87 K/mm3 (1.96-9.15); NEUTROPHILS PERCENT AUTO 65 % (41-73); Platelet Count 150 K/mm3 (150-400); RDW Coefficient Variation 14.7 % (11.7-14.2); RDW Standard Deviation 44.4 fL (35.1-46.3); White Blood Cell Count 8.97 K/mm3 (4.00-11.30)
[2021-11-04 06:02] LABS: Anion Gap 5 mmol/L (6-16); Blood Urea Nitrogen 8 mg/dL (8-24); Bun/Creatinine Ratio 12.1 (12.0-20.0); CO2, Blood 26 mmol/L (21-32); Calcium, Blood 7.7 mg/dL (8.5-10.1); Chloride, Blood 109 mmol/L (98-108); Cholesterol 380 mg/dL (50-200); Creatinine, Blood 0.66 mg/dL (0.60-1.20); Glomerular Filtration Rate >60 (60-); Glucose, Blood 147 mg/dL (70-99); Potassium, Blood 3.1 mmol/L (3.5-5.5); Sodium, Blood 140 mmol/L (136-145); Triglycerides 888 mg/dL (30-160)
--- NOTE | 2021-11-04 06:24 | NUR ---
SHIFT SUMMARY PT REMAINS ALERT AND ORIENTED. HE IS RECEIVING INSULIN GTT AT A SET RATE OF 8UNITS/HR AND D5 1/2NS AT 200ML/HR. HE WILL ALSO BE RECEIVING 80MEQ KCL THIS AM. PT CONTINUES TO HAVE ABDOMINAL PAIN ALL OVER BUT SHARP/STABBING PAIN IN LUQ. PT USES URINAL INDEPENDENTLY. VSS THROUGHOUT SHIFT. WILL REPORT TO ONCOMING RN.
--- NOTE | 2021-11-04 08:15 | NUR ---
INITIAL ASSESSMENT PATIENT ALERT AND ORIENTED X 4, AFEBRILE. PATIENT PLEASANT AND COOPERATIVE. PATIENT REPOSITIONING SELF IN BED AND STANDING AT SIDE OF BED TO USE URINAL INDEPENDENTLY. PATIENT GIVEN PRN FENTANYL FOR COMPLAINTS OF PAIN IN EPIGASTRIC AREA AND JUST LEFT OF EPIGASTRIC MIDLINE. PATIENT SATTING 90% AND GREATER ON RA. LUNGS CLEAR THROUGHOUT. PATIENT IN SR, HR IN THE 80S. SBP 90S TO LOW 100S. ABDOMEN MODERATELY DISTENDED, TENDER, WITH HYPERACTIVE BOWEL SOUNDS NOTED. DATE OF LAST BM NOT DOCUMENTED. WNL. SKIN APPEARS WNL. D5 DC'D THIS AM AND LR STARTED AT 200 MLS/ HOUR. INSULIN DRIP DC'D THIS AM. PATIENT STARTED ON LONG ACTING AND Q4 SLIDING SCALE INSULIN. PATIENT RECEIVING KCL REPLACEMENT FOR AM POTASSIUM OF 3.1. BED LOW, CALL LIGHT IN REACH. WILL CONTINUE TO MONITOR PATIENT FREQUENTLY THROUGHOUT SHIFT.
--- NOTE | 2021-11-04 12:00 | NUR ---
PATIENT AFEBRILE. NAPPING ON AND OFF. HR 80S TO 90S. SBP 90S TO 120S. URINE TEA COLORED. INSULIN DRIP AT 8 UNITS/ HOUR AND D5W 1/2 NS INFUSING AT 125 MLS/ HOUR. NO OTHER ACUTE CHANGES TO NOTE ON AT THIS TIME. WILL CONTINUE TO MONITOR.
[2021-11-04 13:45] LABS: Anion Gap 6 mmol/L (6-16); Blood Urea Nitrogen 7 mg/dL (8-24); Bun/Creatinine Ratio 10.8 (12.0-20.0); CO2, Blood 25 mmol/L (21-32); Calcium, Blood 7.8 mg/dL (8.5-10.1); Chloride, Blood 110 mmol/L (98-108); Creatinine, Blood 0.65 mg/dL (0.60-1.20); Glomerular Filtration Rate >60 (60-); Glucose, Blood 165 mg/dL (70-99); Potassium, Blood 3.5 mmol/L (3.5-5.5); Sodium, Blood 141 mmol/L (136-145)
--- NOTE | 2021-11-04 16:00 | NUR ---
PATIENT AFEBRILE. HR 80S TO 90S. SBP 120S TO 130S. INSULIN DRIP AT 6 UNITS/ HOUR, D5W 1/2 NS INFUSING AT 250 MLS/ HOUR. NO OTHER ACUTE CHANGES TO NOTE ON AT THIS TIME. WILL CONTINUE TO MONITOR.
[2021-11-04 16:16] LABS: Cholesterol 365 mg/dL (50-200); Triglycerides 755 mg/dL (30-160)
--- NOTE | 2021-11-04 18:34 | NUR ---
SHIFT SUMMARY PATIENT REMAINED ALERT AND ORIENTED X 4, AFEBRILE. PATIENT REMAINED CALM AND PLEASANT. PATIENT GIVEN PRN DILAUDID AND FENTANYL THROUGHOUT SHIFT TO HELP WITH PAIN IN EPIGASTRIC AREA AND JUST L OF EPIGASTRIC MIDLINE. PATIENT REMAINED SATTING 90% AND GREATER ON RA. PATIENT REMAINED IN SR, HR 80S TO 90S. SBP 90S TO 130S. ABDOMEN REMAINS MODERATELY DISTENDED, TENDER, WITH HYPERACTIVE BOWEL SOUNDS NOTED. NO BM THIS SHIFT. PATIENT CHANGED FROM NPO TO CLEAR LIQUID/ ADA DIET. PATIENT TOLERATING CLEAR LIQUIDS WELL. PATIENT VOIDED 900 MLS OF TEA COLORED URINE INTO URINAL INDEPENDENTLY. NO CHANGES TO SKIN NOTED. PATIENT REMAINS REPOSITIONING SELF IN BED. PATIENT REFUSED BED BATH. D5 1/2 NS INFUSING AT 150 MLS/ HOUR. INSULIN DRIP AT 6 UNITS/ HOUR. BLOOD SUGARS HAVE RANGED FROM 134 TO 156. PATIENT RECEIVED 60 MEQ IV KCL AND 40 MEQ PO KCL. BED LOW, CALL LIGHT IN REACH. REPORT WILL BE GIVEN TO ASSUMING BUSINESS SERVICES CLERK NURSE SHORTLY.
--- NOTE | 2021-11-04 19:15 | NUR ---
ASSUMPTION OF CARE PT CURRENTLY SLEEPING, WAKENS EASILY TO VERBAL STIMULI. HE IS RECEIVING INSULIN 6UNITS/HR, D5 1/2NS 250ML/HR, AND LR 10ML/HR. HE REMAINS ALERT AND ORIENTED, ON RA WITH SPO2 >93%. HE IS PLEASANT AND PARTICIPATES IN CONVERSATION. HE CONTINUES TO HAVE ABDOMINAL PAIN THAT IS IN THE EPIGASTRIC REGION AND LUQ/LLQ. SEE SHIFT ASSESSMENT.
[2021-11-05 05:42] LABS: BASOPHILS ABSOLUTE AUTO 0.04 K/mm3 (0.00-0.23); BASOPHILS PERCENT AUTO 1 % (0-2); EOSINOPHILS PERCENT AUTO 4 % (0-6); Hematocrit 36.7 % (37.0-53.0); Hemoglobin 12.1 g/dL (13.5-17.5); IMMATURE GRAN ABSOLUTE AUTO 0.05 K/mm3 (0.00-0.10); IMMATURE GRAN PERCENT AUTO 1 % (0-1); LYMPHOCYTES ABSOLUTE AUTO 1.74 K/mm3 (0.84-5.20); LYMPHOCYTES PERCENT AUTO 21 % (21-46); MONOCYTES ABSOLUTE AUTO 0.81 K/mm3 (0.16-1.47); MONOCYTES PERCENT AUTO 10 % (4-13); Mean Corpuscular HGB 27.4 pg (26.0-34.0); Mean Corpuscular Volume 83 fL (80-100); Mean Platelet Volume 11.4 fL (9.1-12.4); NEUTROPHILS ABSOLUTE AUTO 5.35 K/mm3 (1.96-9.15); NEUTROPHILS PERCENT AUTO 65 % (41-73); Platelet Count 145 K/mm3 (150-400); RDW Coefficient Variation 14.7 % (11.7-14.2); RDW Standard Deviation 44.5 fL (35.1-46.3); Red Blood Cell Count 4.42 M/mm3 (4.30-5.90); White Blood Cell Count 8.29 K/mm3 (4.00-11.30)
[2021-11-05 06:04] LABS: Anion Gap 7 mmol/L (6-16); Blood Urea Nitrogen 3 mg/dL (8-24); Bun/Creatinine Ratio 5.3 (12.0-20.0); CO2, Blood 24 mmol/L (21-32); Chloride, Blood 107 mmol/L (98-108); Cholesterol 293 mg/dL (50-200); Creatinine, Blood 0.56 mg/dL (0.60-1.20); Glomerular Filtration Rate >60 (60-); Glucose, Blood 173 mg/dL (70-99); Potassium, Blood 3.3 mmol/L (3.5-5.5); Sodium, Blood 138 mmol/L (136-145); Triglycerides 628 mg/dL (30-160)
--- NOTE | 2021-11-05 06:23 | NUR ---
SHIFT SUMMARY PT REMAINS ALERT AND ORIENTED. HE HAS SLEPT THROUGH MOST OF NIGHT AND WAKENS EASILY TO VERBAL STIMULI. HE REMAINS ON AN INSULIN GTT 8UNITS/HR, D5 1/2NS 250ML/HR, AND LR 10ML/HR. MEDICATED MULTIPLE TIMES THIS SHIFT FOR ABDOMINAL/EPIGASTRIC PAIN. TOLERATING SMALL AMOUNTS OF PO FLUIDS. HE USES THE URINAL INDEPENDENTLY AND HAS HAD ADEQUATE OUTPUT THAT IS TEA COLORED. VS REMAINED STABLE THROUGHOUT NIGHT. WILL REPORT TO ONCOMING RN.
--- NOTE | 2021-11-05 08:00 | NUR ---
INITIAL ASSESSMENT PATIENT ALERT AND ORIENTED X 4, AFEBRILE. PATIENT INDEPENDENT IN BED. PATIENT RECEIVING PRN PAIN MEDS FOR COMPLAINTS OF EPIGASTRIC AND L EPIGASTRIC PAIN. PATIENT SATTING 90% AND GREATER ON RA. LUNGS CLEAR T/O. ABDOMEN MODERATELY DISTENDED, TENDER, WITH HYPERACTIVE BOWEL SOUNDS NOTED. PATIENT ON CLEAR LIQUID DIET. NO BM SINCE HOSPITAL ADMIT. WNL. SKIN WNL. D5 1/2 NS INFUSING AT 200 MLS/ HOUR. INSULIN DRIP INFUSING AT 6 UNITS/ HOUR. LR TKO WITH INSULIN. BED LOW, CALL LIGHT IN REACH. WILL CONTINUE TO MONITOR PATIENT FREQUENTLY THROUGHOUT SHIFT.
--- NOTE | 2021-11-05 11:33 | NUR ---
PATIENT AFEBRILE. PATIENT GIVEN PRN PAIN MED FOR EPIGASTRIC PAIN. HR 80S TO 90S. SBP 130S TO 140S. BLOOD SUGAR 183. INSULIN DRIP AT 8 UNITS/ HOUR AND D5 1/2 NS AT 150 MLS/ HOUR. PATIENT HAD BM. PATIENT SAT IN CHAIR AND PERFORMED MOST OF THE BED/ SPONGE BATH. NO COMPLAINTS AT THIS TIME. WILL CONTINUE TO MONITOR.
[2021-11-05 13:41] LABS: Anion Gap 7 mmol/L (6-16); Blood Urea Nitrogen 3 mg/dL (8-24); Bun/Creatinine Ratio 4.9 (12.0-20.0); CO2, Blood 24 mmol/L (21-32); Calcium, Blood 8.3 mg/dL (8.5-10.1); Chloride, Blood 108 mmol/L (98-108); Creatinine, Blood 0.61 mg/dL (0.60-1.20); Glomerular Filtration Rate >60 (60-); Glucose, Blood 189 mg/dL (70-99); Potassium, Blood 3.5 mmol/L (3.5-5.5); Sodium, Blood 139 mmol/L (136-145)
--- NOTE | 2021-11-05 16:00 | NUR ---
PATIENT AFEBRILE. HR 70S TO 80S. SBP IN THE 120S. NO OTHER ACUTE CHANGES TO NOTE ON AT THIS TIME. WILL CONTINUE TO MONITOR.
[2021-11-05 17:37] LABS: Cholesterol 314 mg/dL (50-200); Triglycerides 586 mg/dL (30-160)
--- NOTE | 2021-11-05 18:30 | NUR ---
SHIFT SUMMARY PATIENT REMAINS ALERT AND ORIENTED X 4, AFEBRILE. PATIENT INDEPENDENT IN ROOM TO TOILET. PATIENT GIVEN PRN PAIN MEDS FOR COMPLAINTS OF EPIGASTRIC AND R EPIGASTRIC PAIN. PATIENT REMAINED ON RA. PATIENT REMAINED IN SR, HR 70S TO 90S. SBP 1-TEENS TO 170S. PATIENT INCREASED TO SOFT/ ADA DIET TODAY AND HAS BEEN TOLERATING WELL. PATIENT NOW HAVING LIQUID STOOLS. PATIENT VOIDED 1400 MLS URINE THIS SHIFT; URINE LIGHTENING IN COLOR. NO CHANGES NOTED TO SKIN. LAST TRIGYLCERIDE LEVEL AT 1700 WAS 586. INSULIN DRIP TO CONTINUE THROUGH NIGHT. INSULIN DRIP CURRENTLY AT 7 UNITS/ HOUR. D5W 1/2 NS INFUSING AT 150 MLS/ HOUR. LR REMAINS TKO WITH INSULIN. PATIENT HAD BED BATH THIS SHIFT. CAME TO VISIT. PATIENT HAS NO COMPLAINTS AT THIS TIME. BED LOW, CALL LIGHT IN REACH. REPORT WILL BE GIVEN TO ASSUMING CIVIL DIVISION COMMANDER DEPUTY SHERIFF NURSE SHORTLY.
--- NOTE | 2021-11-05 20:19 | NUR ---
ASSUMED CARE RECEIVED REPORT FROM SHAMA AGOSTO AT 1900. PT SLEEPING BUT AROUSES EASILY TO VOICE. A/O X4, AFEBRILE, ON ROOM AIR, SPO2 >92%. HR IS SR, RATE IN 80'S. BP STABLE. PT IS ABLE TO AMBULATED INDEPENDENT IN ROOM, STANDS AT BEDSIDE TO USE URINAL. HE COMPLAINS OF EPIGASTRIC PAIN AND PAIN TO LEFT OF EPIGASTRIC REGION. WILL MEDICATE PER EMAR WHEN DUE. INSULIN TO REMAIN BETWEEN 6-8, CURRENTLY AT 7UNITS/HR. D5 1/2 NS AT 150ML/HR, MAX 250ML/HR, TO MAINTAIN CBG'S OF 150-200. MOST RECENT CBG OF 163. 20G IN RIGHT AC, 18G IN DAMEON, AND PG IN DAMEON. INSULIN GTT TO REMAIN ON UNTIL TRIGLYCERIDE LEVELS ARE BELOW 500, MOST RECENT OF 586. ORDERS REVIEWED AND WILL TREAT PRESCRIBED.
[2021-11-06 03:42] LABS: BASOPHILS ABSOLUTE AUTO 0.04 K/mm3 (0.00-0.23); BASOPHILS PERCENT AUTO 1 % (0-2); EOSINOPHILS ABSOLUTE AUTO 0.28 K/mm3 (0.00-0.68); EOSINOPHILS PERCENT AUTO 4 % (0-6); Hematocrit 35.2 % (37.0-53.0); Hemoglobin 11.7 g/dL (13.5-17.5); IMMATURE GRAN ABSOLUTE AUTO 0.05 K/mm3 (0.00-0.10); IMMATURE GRAN PERCENT AUTO 1 % (0-1); LYMPHOCYTES ABSOLUTE AUTO 2.24 K/mm3 (0.84-5.20); LYMPHOCYTES PERCENT AUTO 30 % (21-46); MONOCYTES ABSOLUTE AUTO 0.71 K/mm3 (0.16-1.47); MONOCYTES PERCENT AUTO 10 % (4-13); Mean Corpuscular HGB 27.4 pg (26.0-34.0); Mean Corpuscular HGB Conc 33.2 g/dL (31.5-36.5); Mean Corpuscular Volume 82 fL (80-100); NEUTROPHILS ABSOLUTE AUTO 4.05 K/mm3 (1.96-9.15); NEUTROPHILS PERCENT AUTO 55 % (41-73); Platelet Count 143 K/mm3 (150-400); RDW Coefficient Variation 14.5 % (11.7-14.2); RDW Standard Deviation 43.6 fL (35.1-46.3); Red Blood Cell Count 4.27 M/mm3 (4.30-5.90); White Blood Cell Count 7.37 K/mm3 (4.00-11.30)
--- NOTE | 2021-11-06 04:06 | NUR ---
PT SLEEPING AT THIS TIME. D5 1/2NS INCREASED TO 200ML/HR AND INSULIN GTT CONTINUES AT 7 UNITS/HR. MOST RECENT CBG OF 138. VSS.
[2021-11-06 04:08] LABS: Alanine Aminotransfer (ALT/SGP 27 U/L (12-78); Albumin, Blood 2.4 g/dL (3.4-5.0); Albumin/Globulin Ratio 0.6 (0.8-1.8); Alk Phos 59 U/L (50-136); Anion Gap 4 mmol/L (6-16); Aspartate Aminotrans (AST/SGOT 21 U/L (12-37); Bilirubin, Total 0.6 mg/dL (0.1-1.0); Blood Urea Nitrogen 4 mg/dL (8-24); Bun/Creatinine Ratio 6.2 (12.0-20.0); CO2, Blood 26 mmol/L (21-32); Calcium, Blood 8.4 mg/dL (8.5-10.1); Chloride, Blood 110 mmol/L (98-108); Cholesterol 265 mg/dL (50-200); Creatinine, Blood 0.65 mg/dL (0.60-1.20); Globulin, Blood 3.9 g/dL (2.2-4.0); Glomerular Filtration Rate >60 (60-); Glucose, Blood 158 mg/dL (70-99); Potassium, Blood 3.2 mmol/L (3.5-5.5); Sodium, Blood 140 mmol/L (136-145); Total Protein, Blood 6.3 g/dL (6.4-8.2); Triglycerides 479 mg/dL (30-160)
--- NOTE | 2021-11-06 04:22 | NUR ---
CALL TO DR. SWANSON RE: POTASSIUM OF 3.2. ORDERS GIVEN FOR 40 MEQ PO X1. ALSO RELAYED TRIGLYCERIDE LEVEL OF 479. INSULIN AND D5 1/2NS TO REMAIN ON UNTIL NEXT TRIGLYCERIDE CHECK, INSULIN GTT AT 7 UNITS, D5 1/2NS AT 200ML/HR. WILL CONTINUE TO TITRATE PER PARAMETERS AND Q2H CBG CHECKS.
--- NOTE | 2021-11-06 06:50 | NUR ---
SHIFT SUMMARY PT SLEPT OFF AND ON THIS SHIFT. REMAINS COOPERATIVE AND A/O X4. INSULIN GTT REMAINS ON AT 7 UNITS/HR AND D5 1/2 NS AT 200ML/HR. LR AT 10ML/HR FOR TKO WITH INSULIN. CBG'S REMAINED STABLE T/O THE NIGHT. TRIGLYCERIDES NOW <500. VSS, ON ROOM AIR. MEDICATED WITH PRN DILAUDID AND FENTANYL PER EMAR FOR EPIGASTRIC PAIN. 40MEQ PO POTASSIUM REPLACEMENT GIVEN THIS AM. AFEBRILE AND NO ACUTE CHANGES THIS SHIFT. WILL REPORT TO ONCOMING SHIFT.
--- NOTE | 2021-11-06 07:15 | NUR ---
DR. BERMEO CALLED THIS AM RE: NEW ORDERS WITH INSULIN. HE WOULD LIKE THE INSULIN GTT AND D5 1/2 NS TO REMAIN ON AT CURRENT RATES FOR 90 MINUTES FOLLOWING SUBQ ADMINISTRATION OF INSULIN. RECHECK THE CBG AFTER THE 90 MINUTES, AND IF STABLE, MAY CHANGE CBG TO Q4H AFTER. HE IS WANTING TO MAKE SURE HIS DIET IS ALSO LOW FAT/CHOLESTEROL D/T ELEVATED TRIGLYCERIDES. MAY STATUS CHANGE TO MEDICAL AFTER INSULIN GTT IS OFF.
[2021-11-06 13:19] LABS: Anion Gap 6 mmol/L (6-16); Blood Urea Nitrogen 4 mg/dL (8-24); Bun/Creatinine Ratio 6.7 (12.0-20.0); CO2, Blood 23 mmol/L (21-32); Calcium, Blood 8.9 mg/dL (8.5-10.1); Chloride, Blood 109 mmol/L (98-108); Glomerular Filtration Rate >60 (60-); Glucose, Blood 218 mg/dL (70-99); Potassium, Blood 4.2 mmol/L (3.5-5.5); Sodium, Blood 138 mmol/L (136-145)
--- NOTE | 2021-11-06 17:07 | NUR ---
SUMMARY PT A/O X4. INDEP IN ROOM. PT WAS ON INSULIN AND D5 1/2NS THIS AM. LONG ACTING INSULIN GIVEN THIS AM THEN INSULIN AND D5 TURNED OFF. PT C/O EPIGASTRIC PAIN. PT STATES THIS HAS BEEN GOING ON FOR MONTHS. DENIES ANY RADIATING PAIN TO NECK, ARM, OR JAW. NO RHYTHM CHANGES. EKG DONE AND NORMAL. TROPONINS NEGATIVE SO FAR. PT STATES HE THOUGHT IT WAS AN ULCER BUT HE HAD TAKEN PRILOSEC AT HOME FOR MONTHS WITHOUT RELIEF. NO SOB. PERCOCET GIVEN FOR PAIN. NO OTHER CHANGES. DOWNGRADED TO MEDICAL STATUS TODAY. NO SIGN OF DISTRESS.
--- NOTE | 2021-11-06 19:58 | NUR ---
ASSUMED CARE OF AKANKSHA, HIS IS IN ROOM. HE IS ASKING QUESTIONS ABOUT MEDICATION AND COVERAGE AND PAIN MEDS. HE IS TRYING TO EDUCATE HIMSELF IN REGARDS TO THE CURRENT HEALTH SITUATION. HE IS ASKING APPROPRIATE QUESTIONS AND DEMONSTRATES GOOD UNDERSTANDING. LUNGS CLEAR, VITALS STABLE, ABD SOFT, BT ACTIVE, TENDER IN RUQ, UP TO BSC NEEDED. NO EDEMA, SKIN W/D/I. PT DOES SAY HE HAS HAD THIS SUBSTERNAL/RUQ PAIN FOR ABOUT 6-7 MONTHS, HAS HAD IT WORKED UP IN THE LAST 6 MONTHS WELL TODAY. HE SAYS A "HEART ATTACK" WAS RULED OUT THEN WELL. STATES, "I'VE BEEN THROUGH ALL THESE TESTS RECENTLY". ENCOURAGED AND REASSURANCE GIVEN.
--- NOTE | 2021-11-07 00:57 | NUR ---
PT CALLED ME IN TO THE ROOM, ON OBSERVATION HE IS SITTING BOLT UPRIGHT IN BED GRIMACING, HOLDING ON TO THE RAILS. TRYING TO CATCH HIS BREATH AND SAYS, "I'M HAVING THAT PAIN" PATIENT HOOKED UP TO THE MONITOR, NO ECG CHANGES, SATS 98% ON RA, BP ELEVATED. MEDICATED WITH FENTANYL 50MCG PER MAR. PT SAYS THAT HE IS EXPERIENCING NUMBNESS AND WEAKNESS IN BOTH ARMS, THAT HE FEELS THIS WAY EVERY TIME SINCE HE HAD COVID. STATES THAT AT HOME HE HAS TO TRY TO FIGURE IT OUT HIMSELF AND NOT TAKE THE PAIN MEDICATION THAT WE ARE GIVING HIM. THAT HE DISTRACTS HIMSELF PLAYING VIDEO GAMES AND WATCHING TV UNTIL IT GOES AWAY. AFTER ABOUT 30 MINUTES HE SAYS IT'S ALMOST GONE, BUT IT IS STILL THERE. MONITOR CONTINUES WITHOUT ANY CHANGES AND SATS REMAIN >97%.
[2021-11-07 05:50] LABS: BASOPHILS ABSOLUTE AUTO 0.07 K/mm3 (0.00-0.23); BASOPHILS PERCENT AUTO 1 % (0-2); EOSINOPHILS PERCENT AUTO 4 % (0-6); Hematocrit 41.9 % (37.0-53.0); Hemoglobin 13.7 g/dL (13.5-17.5); IMMATURE GRAN ABSOLUTE AUTO 0.16 K/mm3 (0.00-0.10); IMMATURE GRAN PERCENT AUTO 2 % (0-1); LYMPHOCYTES PERCENT AUTO 35 % (21-46); MONOCYTES ABSOLUTE AUTO 0.62 K/mm3 (0.16-1.47); MONOCYTES PERCENT AUTO 9 % (4-13); Mean Corpuscular HGB Conc 32.7 g/dL (31.5-36.5); Mean Corpuscular Volume 83 fL (80-100); Mean Platelet Volume 10.8 fL (9.1-12.4); NEUTROPHILS ABSOLUTE AUTO 3.25 K/mm3 (1.96-9.15); NEUTROPHILS PERCENT AUTO 48 % (41-73); Platelet Count 195 K/mm3 (150-400); RDW Coefficient Variation 14.6 % (11.7-14.2); RDW Standard Deviation 43.9 fL (35.1-46.3); Red Blood Cell Count 5.07 M/mm3 (4.30-5.90)
--- NOTE | 2021-11-07 05:50 | NUR ---
AWAKENED PT FOR BLOOD DRAW AND AM LABS, HE WAS SLEEPING WELL. HE HAS BEEN RESTING SINCE THE PAINFUL EPISODE IN THE EARLY HOURS. HE CONTINUES TO SAY HE WANTS TO GO HOME TODAY. VITALS REMAIN STABLE. NO FURTHER CHANGES.
[2021-11-07 06:20] LABS: Anion Gap 7 mmol/L (6-16); Blood Urea Nitrogen 7 mg/dL (8-24); Bun/Creatinine Ratio 10.7 (12.0-20.0); CO2, Blood 26 mmol/L (21-32); Calcium, Blood 9.4 mg/dL (8.5-10.1); Chloride, Blood 105 mmol/L (98-108); Creatinine, Blood 0.66 mg/dL (0.60-1.20); Glomerular Filtration Rate >60 (60-); Glucose, Blood 211 mg/dL (70-99); Potassium, Blood 3.9 mmol/L (3.5-5.5); Sodium, Blood 138 mmol/L (136-145)
[2021-11-07 09:07] LABS: Cholesterol 295 mg/dL (50-200); Triglycerides 542 mg/dL (30-160)
[2021-11-07] MEDS ORDERED: LOVAZA PO (12:40)
[2021-11-07] MEDS ORDERED: PANT40 PO (12:44)
[2021-11-07] MEDS ORDERED: Percocet 5-3251 EACH PO (12:49)
[2021-11-07] MEDS ORDERED: Calcium Carbon500 MG PO (12:51)
[2021-11-07] MEDS ORDERED: INVOKANA100 MG PO (12:56)
[2021-11-07] MEDS ORDERED: [UNRECOGNIZED DRUG - OTHER] PO (12:58)
[2021-11-07] MEDS ORDERED: CREON DR 12,001 EACH PO (12:59)
--- NOTE | 2021-11-07 13:54 | NUR ---
PATIENT DISCHARGED HOME AROUND 1320. PT IS A&OX4 AND DENIES PAIN AT TIME OF DISCHARGE. MED REC EXPLAINED AND ALL QUESTIONS ANSWERED. ALL BELONGINGS SENT HOME WITH PATIENT. AT BEDSIDE FOR DISCHARGE.
== END 2021-11-07 13:20 | disposition home or self-care (01) | DRG 642 ==
LOC: ER 14:41 → MEDS 14:42 → ICUW 19:33 → ICUE 20:43
PROVIDERS: Family Medicine; Physician Assistant; ADMIT Internal Medicine
DX: E78.1 Pure hyperglyceridemia (principal); K85.90 Acute pancreatitis without necrosis or infection, unspecified; K86.3 Pseudocyst of pancreas; R65.10 Systemic inflammatory response syndrome (SIRS) of non-infectious origin without acute organ dysfunction; Z53.29 Procedure and treatment not carried out because of patient's decision for other reasons; Z20.822 Contact with and (suspected) exposure to COVID-19; E78.5 Hyperlipidemia, unspecified; K21.9 Gastro-esophageal reflux disease without esophagitis; E66.9 Obesity, unspecified; E87.6 Hypokalemia; Z90.49 Acquired absence of other specified parts of digestive tract; Z98.52 Vasectomy status; Z87.891 Personal history of nicotine dependence; Z98.890 Other specified postprocedural states
CPT/HCPCS: 0241U; 36415; 71045; 74177; 80048; 80053; 81001; 82330; 82465; 82947; 83036; 83690; 83880; 84478; 84484; 85025; 93005; 93010; 96372; 96374; 96375; 96376; 99285-25; A9270; C1751; J1170; J1650; J1815; J1885; J2405; J3010; J3480; J7030; J7042; J7120; Q9967

== ENCOUNTER 2021-12-08 00:12 | Observation (INO) | payer BC ==
[~2021-12-08] VITALS: Ht 193 cm; Wt 119.3 kg
[~2021-12-08 00:12] MED LIST changes: +CREON DR 12,001 EACH PO; +Calcium Carbon500 MG PO; +FENO145 PO; +FISH OIL 1,2001 EAC1 PO; +GABA100 PO; +GLIP10ER PO; +INVOKANA100 MG PO; +LEVSOD112 PO; +LOVAZA PO; +OMEP20ER PO; +ROSU10TA PO; +TRESIBA FL200 UNIT/2 SQ; +[UNRECOGNIZED DRUG - OTHER] PO
[2021-12-08 01:10] LABS: BASOPHILS ABSOLUTE AUTO 0.07 K/mm3 (0.00-0.23); BASOPHILS PERCENT AUTO 1 % (0-2); EOSINOPHILS ABSOLUTE AUTO 0.24 K/mm3 (0.00-0.68); EOSINOPHILS PERCENT AUTO 3 % (0-6); Hemoglobin 14.9 g/dL (13.5-17.5); IMMATURE GRAN ABSOLUTE AUTO 0.03 K/mm3 (0.00-0.10); IMMATURE GRAN PERCENT AUTO 0 % (0-1); LYMPHOCYTES ABSOLUTE AUTO 2.41 K/mm3 (0.84-5.20); LYMPHOCYTES PERCENT AUTO 30 % (21-46); MONOCYTES ABSOLUTE AUTO 0.57 K/mm3 (0.16-1.47); MONOCYTES PERCENT AUTO 7 % (4-13); Mean Corpuscular HGB 28.7 pg (26.0-34.0); Mean Corpuscular HGB Conc 35.5 g/dL (31.5-36.5); Mean Corpuscular Volume 81 fL (80-100); Mean Platelet Volume 10.7 fL (9.1-12.4); NEUTROPHILS ABSOLUTE AUTO 4.74 K/mm3 (1.96-9.15); NEUTROPHILS PERCENT AUTO 59 % (41-73); Platelet Count 184 K/mm3 (150-400); RDW Coefficient Variation 14.6 % (11.7-14.2); Red Blood Cell Count 5.19 M/mm3 (4.30-5.90); White Blood Cell Count 8.06 K/mm3 (4.00-11.30)
[2021-12-08 01:54] LABS: Alanine Aminotransfer (ALT/SGP 58 U/L (12-78); Albumin, Blood 3.7 g/dL (3.4-5.0); Albumin/Globulin Ratio 0.8 (0.8-1.8); Alk Phos 144 U/L (50-136); Anion Gap 13 mmol/L (6-16); Aspartate Aminotrans (AST/SGOT 40 U/L (12-37); Bilirubin, Total 0.9 mg/dL (0.1-1.0); Blood Urea Nitrogen 24 mg/dL (8-24); Bun/Creatinine Ratio 48.4 (12.0-20.0); CO2, Blood 22 mmol/L (21-32); Chloride, Blood 97 mmol/L (98-108); Globulin, Blood 4.4 g/dL (2.2-4.0); Glomerular Filtration Rate >60 (60-); Glucose, Blood 463 mg/dL (70-99); Potassium, Blood 3.8 mmol/L (3.5-5.5); Sodium, Blood 132 mmol/L (136-145); Total Protein, Blood 8.1 g/dL (6.4-8.2)
[2021-12-08 02:14] LABS: Anti-Xa UFH, PHA Monitoring <0.10 IU/mL; Prothrombin Time Results 10.5 Sec (9.7-11.5)
--- NOTE | 2021-12-08 06:37 | NUR ---
SHIFT SUMMARY ASSUMED CARE OF PT 0300. PT IS A/OX4. HEART SOUNDS REGULAR, LUNG SOUNDS HAVE FINE CRACKLES AT THE BASES. PT STATES HE DOES NOT HAVE CP LIKE HE DID AT HOME BUT HIS CHEST IS SORE WITH A 5/10 PAIN LEVEL. WHILE ADMITTING PT PT STATED "HAVE I [id number] TO DILAUDID YET". PT EXPLAINED THAT DILAUDID IS THAT ONLY THING THAT HELPS WITH HIS PAIN AND HE WILL TAKE IT WHENEVER HE CAN HAVE IT. HOSPITALIST NOTIFED AND ORDERED MEDICATIONS AFTER REVEIWING CHART. HEPRIN RUNNING.
[2021-12-08 10:24] LABS: BASOPHILS ABSOLUTE AUTO 0.04 K/mm3 (0.00-0.23); BASOPHILS PERCENT AUTO 1 % (0-2); EOSINOPHILS ABSOLUTE AUTO 0.22 K/mm3 (0.00-0.68); EOSINOPHILS PERCENT AUTO 3 % (0-6); Hematocrit 40.5 % (37.0-53.0); Hemoglobin 14.5 g/dL (13.5-17.5); IMMATURE GRAN ABSOLUTE AUTO 0.02 K/mm3 (0.00-0.10); IMMATURE GRAN PERCENT AUTO 0 % (0-1); LYMPHOCYTES ABSOLUTE AUTO 2.52 K/mm3 (0.84-5.20); LYMPHOCYTES PERCENT AUTO 37 % (21-46); MONOCYTES ABSOLUTE AUTO 0.52 K/mm3 (0.16-1.47); MONOCYTES PERCENT AUTO 8 % (4-13); Mean Corpuscular HGB 28.5 pg (26.0-34.0); Mean Corpuscular HGB Conc 35.8 g/dL (31.5-36.5); Mean Corpuscular Volume 80 fL (80-100); NEUTROPHILS ABSOLUTE AUTO 3.47 K/mm3 (1.96-9.15); NEUTROPHILS PERCENT AUTO 51 % (41-73); Platelet Count 186 K/mm3 (150-400); RDW Coefficient Variation 14.6 % (11.7-14.2); RDW Standard Deviation 42.8 fL (35.1-46.3); Red Blood Cell Count 5.09 M/mm3 (4.30-5.90); White Blood Cell Count 6.79 K/mm3 (4.00-11.30)
[2021-12-08 10:43] LABS: CPK Creatine Kinase 88 U/L (39-308)
[2021-12-08 12:03] LABS: Alanine Aminotransfer (ALT/SGP 22 U/L (12-78); Albumin, Blood 3.7 g/dL (3.4-5.0); Alk Phos 122 U/L (50-136); Anion Gap 8 mmol/L (6-16); Aspartate Aminotrans (AST/SGOT 22 U/L (12-37); Blood Urea Nitrogen 17 mg/dL (8-24); Bun/Creatinine Ratio 34.6 (12.0-20.0); CO2, Blood 23 mmol/L (21-32); Calcium, Blood 8.3 mg/dL (8.5-10.1); Chloride, Blood 104 mmol/L (98-108); Creatinine, Blood 0.49 mg/dL (0.60-1.20); Globulin, Blood 3.7 g/dL (2.2-4.0); Glomerular Filtration Rate >60 (60-); Glucose, Blood 311 mg/dL (70-99); Potassium, Blood 3.6 mmol/L (3.5-5.5); Sodium, Blood 135 mmol/L (136-145); Total Protein, Blood 7.4 g/dL (6.4-8.2)
--- NOTE | 2021-12-08 12:17 | NUR ---
UPDATE Pt is a/o x 4 with reports of chest pain/discomfort x 1 year. He was medicated for pain per emar and taken to the heart center for an angio. Upon his return the heart center RN reported that he will need to be COBRA transferred for further intervention and Dr Roman has initiated the transfer. A packet has been started but we are waiting on a bed. His has a right radial site access. Heparin gtt continues per Dr Roman as dosed by the pharmacy. He is eating lunch now and his is at the bedside.
--- NOTE | 2021-12-08 13:24 | NUR ---
Report called to SHAMA Lopez at [facility]. The pt has been notified that he has a bed @ [facility]. Transporation has been set up and the pt will be transported as soon as they arrive. The remains at the bedside. Pt is sleeping now and stable.
== END 2021-12-08 14:00 | disposition short-term general hospital (02) ==
LOC: ER 00:12 → PCU 00:13 → ER 02:04 → PCU 02:04
PROVIDERS: Emergency Medicine; Student in an Organized Health Care Education/Training Program; ADMIT Internal Medicine
DX: I21.4 Non-ST elevation (NSTEMI) myocardial infarction (principal); E78.1 Pure hyperglyceridemia; E11.65 Type 2 diabetes mellitus with hyperglycemia; I10 Essential (primary) hypertension; E66.9 Obesity, unspecified; Z86.16 Personal history of COVID-19; Z86.39 Personal history of other endocrine, nutritional and metabolic disease; Z88.8 Allergy status to other drugs, medicaments and biological substances; Z91.048 Other nonmedicinal substance allergy status; Z79.4 Long term (current) use of insulin; Z68.31 Body mass index [BMI] 31.0-31.9, adult
CPT/HCPCS: 36415; 71045; 76937; 80053; 82550; 82947; 83690; 84484; 85025; 85520; 85610; 85730; 93005; 93010; 93306; 93454; 99152; 99153; A9270; C1769; C1887; C1894; J1170; J1644; J1815; J2250; J3010; J7030; J7050; Q9967

== ENCOUNTER 2022-02-07 20:17 | Inpatient (IN) | payer BC ==
[~2022-02-07] VITALS: Ht 193 cm; Wt 122.9 kg
[2022-02-07 21:16] LABS: BASOPHILS ABSOLUTE AUTO 0.05 K/mm3 (0.00-0.23); BASOPHILS PERCENT AUTO 1 % (0-2); EOSINOPHILS PERCENT AUTO 0 % (0-6); Hematocrit 41.5 % (37.0-53.0); Hemoglobin 14.2 g/dL (13.5-17.5); IMMATURE GRAN ABSOLUTE AUTO 0.05 K/mm3 (0.00-0.10); IMMATURE GRAN PERCENT AUTO 1 % (0-1); LYMPHOCYTES ABSOLUTE AUTO 0.68 K/mm3 (0.84-5.20); LYMPHOCYTES PERCENT AUTO 6 % (21-46); MONOCYTES ABSOLUTE AUTO 0.72 K/mm3 (0.16-1.47); MONOCYTES PERCENT AUTO 7 % (4-13); Mean Corpuscular HGB 26.5 pg (26.0-34.0); Mean Corpuscular HGB Conc 34.2 g/dL (31.5-36.5); Mean Corpuscular Volume 78 fL (80-100); Mean Platelet Volume 10.3 fL (9.1-12.4); NEUTROPHILS ABSOLUTE AUTO 9.33 K/mm3 (1.96-9.15); NEUTROPHILS PERCENT AUTO 86 % (41-73); Platelet Count 182 K/mm3 (150-400); RDW Coefficient Variation 14.9 % (11.7-14.2); RDW Standard Deviation 42.1 fL (35.1-46.3); Red Blood Cell Count 5.35 M/mm3 (4.30-5.90); White Blood Cell Count 10.83 K/mm3 (4.00-11.30)
[2022-02-07 21:37] LABS: Alanine Aminotransfer (ALT/SGP 23 U/L (12-78); Albumin/Globulin Ratio 0.9 (0.8-1.8); Alk Phos 96 U/L (50-136); Anion Gap 11 mmol/L (6-16); Aspartate Aminotrans (AST/SGOT 14 U/L (12-37); Bilirubin, Total 0.9 mg/dL (0.1-1.0); Blood Urea Nitrogen 11 mg/dL (8-24); Bun/Creatinine Ratio 19.2 (12.0-20.0); CO2, Blood 24 mmol/L (21-32); Calcium, Blood 9.3 mg/dL (8.5-10.1); Chloride, Blood 100 mmol/L (98-108); Creatinine, Blood 0.57 mg/dL (0.60-1.20); Globulin, Blood 4.3 g/dL (2.2-4.0); Glomerular Filtration Rate 117 (60-); Glucose, Blood 280 mg/dL (70-99); Potassium, Blood 3.7 mmol/L (3.5-5.5); Sodium, Blood 135 mmol/L (136-145); Total Protein, Blood 8.3 g/dL (6.4-8.2)
[2022-02-08 02:49] LABS: CHOL/HDL RATIO 4.5; Cholesterol 258 mg/dL (50-200); HDL Cholesterol 57 mg/dL (>39); LDL/HDL RATIO Unable to Calculate; Low Density Lipoprotein Chol Unable to Calculate mg/dL (0-110); Triglycerides 501 mg/dL (30-160); Very Low Density Lipoprot Chol Unable to Calculate mg/dL (6-32)
--- NOTE | 2022-02-08 06:37 | NUR ---
SHIFT SUMMARY PT REPORTS HX OF CHEST PAIN FOR SEVERAL DAYS, THEN ON 02/06 FEELING A POP IN HIS CHEST, THE PAIN SUBSEQUENTLY MIGRATED TO HIS LOWER ABDOMEN. PT DENIES NEED FOR MEDICATION FOR PAIN/NAUSEA AT THIS TIME. PT STATES LAST FOOD INTAKE ON 02/06, CURRENTLY NPO. PT INDEPENDENTLY TRANSFERRED TO BED FROM WHEECHAIR. REPORTS BM ON 02/07.
[2022-02-08 09:36] LABS: SARS-Cov-2 (COVID-19) PCR, MMC NEGATIVE (NEGATIVE)
--- NOTE | 2022-02-08 10:29 | NUR ---
PATIENT TO OR VIA [facility]EE[facility] WITH SHAMA OKEEFE
--- NOTE | 2022-02-08 13:26 | NUR ---
PATIENT RETURNED TO ROOM FROM PACU ABOUT 1310. VSS, ON 3L 02, SATS 97%. X3 LAP SITES WITH DERMABOND, WNL. PATIENT DENIES PAIN AT THIS TIME. DENIES N/V.
--- NOTE | 2022-02-08 18:07 | NUR ---
PATIENT REPORTS CONTINUED NAUSEA. MEDICATED ABOUT 1550 WITH ZOFRAN, ONLY HELPED PATIENT FOR ABOUT [address] YEE, ORDERS GIVEN FOR PHENGRAN 12.5 Q6P.
--- NOTE | 2022-02-08 18:08 | NUR ---
SHIFT SUMAMRY NO ACUTE CHANGES SINCE ARRIVAL FROM PACU, PATIENT HAS BEEN RESTING. TEMP SLIGHTLY ELEVATED THIS EVENING, BUT TRENDING DOWN. PATIENT REPORTS NAUSEA ON & OFF, MEDICATIONS UPDATED PER EMAR. EMESIS X1, MINIMAL AMOUNT. TOLERATING SIPS OF WATER AND JELLO AT THIS TIME, HAVE NOT ADVANCED DIET FURTHER D/T NAUSEA. REPORTS MINIMAL PAIN AND DENIES NEED FOR PAIN MEDICATION. UP TO BR SBA. NO BM, NO FLATUS. WILL REPORT TO ONCOMING RN.
--- NOTE | 2022-02-09 05:09 | NUR ---
SHIFT SUMMARY PT A&OX4, COOPERATIVE W/ CARE AND INTERVENTIONS, POD1, 3 LAP SITES C/D/I PATIENT REPORTS ADEQUATE PAIN RELIEF W/TYLENOL, TEMPERATURE HAS BEEN WNL SINCE A LOW GRADE FEVER WAS NOTED AT BEGINING OF SHIFT. bM NOTED, VOIDING PATTERN NORMAL WITH DARK BRADLEY URINE, ENCOURAGD PO FLUID INTAKE. FLUIDS INFUSING TKO. 20 G IV STARTED ON R. WRIST. PATIENT REPORTS SLEEPING THROUGHOUT THE NIGHT. DENIES NAUSEA, REFUSED DINNER FOOD TRAY, ENCOURAGED PO FOOD INTAKE. IDEPENDENT IN ROOM.
[2022-02-09 05:21] LABS: Hematocrit 40.8 % (37.0-53.0); Hemoglobin 13.3 g/dL (13.5-17.5); Mean Corpuscular HGB 26.1 pg (26.0-34.0); Mean Corpuscular HGB Conc 32.6 g/dL (31.5-36.5); Mean Corpuscular Volume 80 fL (80-100); Mean Platelet Volume 10.1 fL (9.1-12.4); Platelet Count 142 K/mm3 (150-400); RDW Standard Deviation 43.7 fL (35.1-46.3); White Blood Cell Count 7.09 K/mm3 (4.00-11.30)
[2022-02-09 05:53] LABS: Albumin/Globulin Ratio 0.7 (0.8-1.8); Bilirubin, Total 0.8 mg/dL (0.1-1.0); Bun/Creatinine Ratio 16.7 (12.0-20.0); Calcium, Blood 8.6 mg/dL (8.5-10.1); Creatinine, Blood 0.66 mg/dL (0.60-1.20); Globulin, Blood 4.1 g/dL (2.2-4.0); Potassium, Blood 3.7 mmol/L (3.5-5.5); Total Protein, Blood 7.1 g/dL (6.4-8.2)
--- NOTE | 2022-02-09 18:18 | NUR ---
SHIFT SUMMARY POD 1 LAP APPY. PATEINT DOING MUCH BETTER TODAY, UP IN BED AND ROOM THROUGHOUT SHIFT, TALKING AND INTERACTING WITH STAFF. PATIENT HAS BEEN AFEBRILE SINCE ABOUT 0000. PAIN MANAGED WITH 2 NORCO PER EMAR. INDEPENDENT IN ROOM. TOLERATING REG DIET, DENIES N/V. REPORTS FLATUS, NO BM'S THIS SHIFT. WILL REPORT TO ONCOMING RN.
--- NOTE | 2022-02-09 19:40 | NUR ---
RECEIVED REPORT AND ASSUMED CARE OF PT. HE IS LYING IN BED, A&OX4. REPORTS PAIN CONTROLLED " LONG I DON'T MOVE". HE DENIES ANY NEEDS AT THIS TIME. CALL LIGHT IN REACH.
[2022-02-10 05:04] LABS: Hematocrit 40.1 % (37.0-53.0); Hemoglobin 13.1 g/dL (13.5-17.5); Mean Corpuscular HGB Conc 32.7 g/dL (31.5-36.5); Mean Corpuscular Volume 80 fL (80-100); Mean Platelet Volume 10.1 fL (9.1-12.4); Platelet Count 153 K/mm3 (150-400); RDW Coefficient Variation 14.9 % (11.7-14.2); Red Blood Cell Count 5.03 M/mm3 (4.30-5.90); White Blood Cell Count 6.12 K/mm3 (4.00-11.30)
[2022-02-10 05:46] LABS: Albumin, Blood 2.9 g/dL (3.4-5.0); Albumin/Globulin Ratio 0.7 (0.8-1.8); Bilirubin, Total 0.8 mg/dL (0.1-1.0); Bun/Creatinine Ratio 23.2 (12.0-20.0); Calcium, Blood 8.8 mg/dL (8.5-10.1); Creatinine, Blood 0.52 mg/dL (0.60-1.20); Globulin, Blood 4.1 g/dL (2.2-4.0); Potassium, Blood 3.8 mmol/L (3.5-5.5)
--- NOTE | 2022-02-10 07:47 | NUR ---
SHIFT SUMMARY: SHAUN IS A&OX4. VSS, NO ACUTE EVENTS OVERNIGHT, AFEBRILE. HE REPORTS ADEQUATE PAIN CONTROL WITH TWO TABLETS OF NORCO, IS TOLERATING PO INTAKE WELL, AND REPORTS VOIDING WITHOUT DIFFICULTY. ABDOMINAL BINDER GIVEN FOR COMFORT. HE IS INDEPENDENT IN THE ROOM AND USES THE CALL LIGHT APPROPRIATELY. HE IS LYING IN BED WITH THE CALL LIGHT IN REACH, RESTING WITH HIS EYES CLOSED AND EVEN, UNLABORED RESPIRATIONS. IV TO LEFT FOREARM PATENT. REPORT GIVEN TO DAY SHIFT RN.
[2022-02-10] MEDS ORDERED: ACET325 PO (11:14)
[2022-02-10] MEDS ORDERED: AMOCLA500 PO (11:15)
[2022-02-10] MEDS ORDERED: Norco 7.5-3251 EACH PO (11:17)
[2022-02-10] MEDS ORDERED: LEVEMIR FL100 UNIT/2 SC (11:56)
[2022-02-10] MEDS ORDERED: HUMALOG KW100 UNIT/1 (11:57)
--- NOTE | 2022-02-10 13:06 | NUR ---
DISCHARGE PT AND HIS S/O PROVIDED WITH WRITTEN AND VERBAL DISCHARGE INSTRUCTIONS; THEY REPORTED UNDERSTANDING. PRESCRIPTION PROVIDED TO PT. AUGMENTIN CALLED TO PT'S PHARMACY. HOME MEDICATION LIST UPDATED PRIOR TO DISCHARGE. PT REPORTED HE HAD ONLY BEEN TAKING HIS INSULIN AT HOME PRIOR TO ADMIT. DR. MCKEON NOTIFIED AND HOME MEDICATION LIST UPDATED ACCORDINGLY. PT EDUCATED TO FOLLOW UP WITH DR. YEE IN 2 WEEKS AND WITH HIS PCP SOON POSSIBLE SINCE HE IS NOT TAKING MANY OF HIS PRESCRIBED MEDICATIONS. PT ESCORTED OUT IN W/C AT 1305.
== END 2022-02-10 13:11 | disposition home or self-care (01) | DRG 854 ==
LOC: ER 20:17 → SURS 20:18
PROVIDERS: Internal Medicine; Student in an Organized Health Care Education/Training Program; Surgery; ADMIT Family Medicine
PROC: 0DTJ4ZZ Resection of Appendix, Percutaneous Endoscopic Approach (ICD-10-PCS; principal; 2022-02-08 11:00)
PROC: 3E03329 Introduction of Other Anti-infective into Peripheral Vein, Percutaneous Approach (ICD-10-PCS; 2022-02-09)
DX: A41.9 Sepsis, unspecified organism (principal); K35.80 Unspecified acute appendicitis; K86.1 Other chronic pancreatitis; E87.1 Hypo-osmolality and hyponatremia; Z20.822 Contact with and (suspected) exposure to COVID-19; I25.10 Atherosclerotic heart disease of native coronary artery without angina pectoris; E78.1 Pure hyperglyceridemia; E78.5 Hyperlipidemia, unspecified; E66.9 Obesity, unspecified; E11.9 Type 2 diabetes mellitus without complications; Z68.31 Body mass index [BMI] 31.0-31.9, adult; Z98.52 Vasectomy status; Z90.49 Acquired absence of other specified parts of digestive tract; Z95.1 Presence of aortocoronary bypass graft; Z98.890 Other specified postprocedural states; Z88.8 Allergy status to other drugs, medicaments and biological substances; Z79.82 Long term (current) use of aspirin; Z79.84 Long term (current) use of oral hypoglycemic drugs; Z79.899 Other long term (current) drug therapy
CPT/HCPCS: 36415; 71045; 71260; 74177; 80053; 80061; 82947; 83605; 83690; 84443; 84484; 85025; 85027; 87040; 88304; 93005; 93010; 96365; 96366; 96375; 96376; 99285-25; A9270; G0378; J0696; J1100; J1170; J1815; J2250; J2405; J2550; J2704; J2765; J3010; J7030; J7120; Q9967; U0004

== ENCOUNTER 2022-04-20 10:09 | Inpatient (IN) | payer BC ==
[~2022-04-20] VITALS: Ht 193 cm; Wt 119.3 kg
[~2022-04-20 10:09] MED LIST changes: +ACET325 PO; +AMOCLA500 PO; +HUMALOG KW100 UNIT/1; +LEVEMIR FL100 UNIT/2 SC; +Norco 7.5-3251 EACH PO
[2022-04-20 11:27] LABS: Alanine Aminotransfer (ALT/SGP 246 U/L (12-78); Albumin, Blood 2.9 g/dL (3.4-5.0); Albumin/Globulin Ratio 0.5 (0.8-1.8); Anion Gap 11 mmol/L (6-16); Aspartate Aminotrans (AST/SGOT 325 U/L (12-37); Bilirubin, Total 2.5 mg/dL (0.1-1.0); Blood Urea Nitrogen 14 mg/dL (8-24); Bun/Creatinine Ratio 19.2 (12.0-20.0); CO2, Blood 22 mmol/L (21-32); Chloride, Blood 89 mmol/L (98-108); Creatinine, Blood 0.73 mg/dL (0.60-1.20); Globulin, Blood 5.3 g/dL (2.2-4.0); Glomerular Filtration Rate 109 (60-); Glucose, Blood 480 mg/dL (70-99); Potassium, Blood 4.8 mmol/L (3.5-5.5); Sodium, Blood 122 mmol/L (136-145); Total Protein, Blood 8.2 g/dL (6.4-8.2)
[2022-04-20 12:36] LABS: BASOPHILS PERCENT AUTO 1 % (0-2); EOSINOPHILS PERCENT AUTO 2 % (0-6); Hematocrit 44.5 % (37.0-53.0); IMMATURE GRAN ABSOLUTE AUTO 0.08 K/mm3 (0.00-0.10); IMMATURE GRAN PERCENT AUTO 1 % (0-1); LYMPHOCYTES ABSOLUTE AUTO 2.55 K/mm3 (0.84-5.20); LYMPHOCYTES PERCENT AUTO 21 % (21-46); MONOCYTES ABSOLUTE AUTO 0.74 K/mm3 (0.16-1.47); MONOCYTES PERCENT AUTO 6 % (4-13); Mean Corpuscular Volume 78 fL (80-100); Mean Platelet Volume 10.3 fL (9.1-12.4); NEUTROPHILS ABSOLUTE AUTO 8.41 K/mm3 (1.96-9.15); NEUTROPHILS PERCENT AUTO 70 % (41-73); Platelet Count 228 K/mm3 (150-400); RDW Coefficient Variation 16.1 % (11.7-14.2); RDW Standard Deviation 44.8 fL (35.1-46.3); Red Blood Cell Count 5.73 M/mm3 (4.30-5.90); White Blood Cell Count 12.08 K/mm3 (4.00-11.30)
[2022-04-20 12:37] LABS: Hemoglobin 14.7 g/dL (13.5-17.5); Mean Corpuscular HGB 25.7 pg (26.0-34.0)
[2022-04-20 13:14] LABS: Source, Urine Clean Catch
[2022-04-20 13:17] LABS: Bilirubin, Urine Neg (Neg); Blood, Urine 2+ (Neg); Color, Urine Yellow (P-Yellow); Glucose Qualitative, Urine 4+ (Neg); Ketones, Urine 4+ (Neg); Leukocyte Esterase, Urine Neg (Neg); Nitrite, Urine Neg (Neg); Protein, Urine 3+ (Neg); Urobilinogen, Urine NORM (Normal)
[2022-04-20 13:29] LABS: Appearance, Urine Hazy (Clear)
[2022-04-20 13:31] LABS: Bacteria Mod /hpf; Mucus Light (0-Heavy); Squamous Epithelial Cells Rare /hpf (Few)
[2022-04-20 13:32] LABS: Hyaline Casts 0-2 /lpf (0-2)
[2022-04-20 16:47] LABS: Cholesterol 845 mg/dL (50-200)
[2022-04-20 16:48] LABS: CHOL/HDL RATIO Unable to Calculate
[2022-04-20 16:49] LABS: LDL/HDL RATIO Unable to Calculate; Low Density Lipoprotein Chol Unable to Calculate mg/dL (0-110); Triglycerides >4000 mg/dL (30-160); Very Low Density Lipoprot Chol Unable to Calculate mg/dL (6-32)
[2022-04-20 19:02] LABS: Anion Gap 11 mmol/L (6-16); CO2, Blood 19 mmol/L (21-32); Chloride, Blood 95 mmol/L (98-108); Creatinine, Blood 0.48 mg/dL (0.60-1.20); Glomerular Filtration Rate 123 (60-); Glucose, Blood 486 mg/dL (70-99); Sodium, Blood 125 mmol/L (136-145)
[2022-04-20 19:03] LABS: Bun/Creatinine Ratio Unable to Calculate (12.0-20.0)
--- NOTE | 2022-04-20 21:18 | NUR ---
ASSUMED CARE OF PT AT 19 RECIEVED REPORT FROM INOCENCIA SESAY. PT WAS ACTIVELY VOMITING AND RITHING IN PAIN QUICKLY GOT ORDER FOR PHENERGAIN ADN INCREASE FREQUENCY OF PAIN MEDS. WAS STILL IN ROOM AT TIME INTRODUCED MYSELF AND DISCUSSED VISITATION HOURS AND STATED I WOULD LIKE TO ASK ADMISSION QUESTIONS AND THEN ASK HER TO LEAVE, AFTER RETURNING TO ROOM HAD ALREADY LEFT. TRIED TO GET PT TO PARTICIPATE MUCH POSSIBLE. PT HAS GOT THE PHENERGAN 12.5 MG AND DILAUDID 1MG AND IS MUCH MORE COMFORTABLE
[2022-04-20 22:27] LABS: Anion Gap 12 mmol/L (6-16); CO2, Blood 19 mmol/L (21-32); Chloride, Blood 97 mmol/L (98-108); Creatinine, Blood 0.47 mg/dL (0.60-1.20); Glomerular Filtration Rate 124 (60-); Glucose, Blood 438 mg/dL (70-99); Potassium, Blood 3.9 mmol/L (3.5-5.5); Sodium, Blood 128 mmol/L (136-145)
[2022-04-20 22:29] LABS: Bun/Creatinine Ratio Unable to Calculate (12.0-20.0)
[2022-04-21 02:07] LABS: BASOPHILS ABSOLUTE AUTO 0.03 K/mm3 (0.00-0.23); BASOPHILS PERCENT AUTO 0 % (0-2); EOSINOPHILS ABSOLUTE AUTO 0.02 K/mm3 (0.00-0.68); EOSINOPHILS PERCENT AUTO 0 % (0-6); Hematocrit 42.3 % (37.0-53.0); IMMATURE GRAN ABSOLUTE AUTO 0.04 K/mm3 (0.00-0.10); IMMATURE GRAN PERCENT AUTO 0 % (0-1); LYMPHOCYTES ABSOLUTE AUTO 1.72 K/mm3 (0.84-5.20); LYMPHOCYTES PERCENT AUTO 16 % (21-46); MONOCYTES ABSOLUTE AUTO 0.91 K/mm3 (0.16-1.47); MONOCYTES PERCENT AUTO 9 % (4-13); Mean Corpuscular Volume 78 fL (80-100); Mean Platelet Volume 10.7 fL (9.1-12.4); NEUTROPHILS ABSOLUTE AUTO 7.88 K/mm3 (1.96-9.15); NEUTROPHILS PERCENT AUTO 74 % (41-73); Platelet Count 211 K/mm3 (150-400); RDW Coefficient Variation 16.5 % (11.7-14.2); RDW Standard Deviation 46.9 fL (35.1-46.3)
[2022-04-21 02:27] LABS: Anion Gap 11 mmol/L (6-16); CO2, Blood 21 mmol/L (21-32); Chloride, Blood 98 mmol/L (98-108); Glomerular Filtration Rate 130 (60-); Glucose, Blood 417 mg/dL (70-99); Potassium, Blood 3.7 mmol/L (3.5-5.5); Sodium, Blood 130 mmol/L (136-145)
[2022-04-21 02:29] LABS: Bun/Creatinine Ratio Unable to Calculate (12.0-20.0)
[2022-04-21 02:46] LABS: Hemoglobin 15.2 g/dL (13.5-17.5); Mean Corpuscular HGB 28.1 pg (26.0-34.0)
[2022-04-21 02:49] LABS: Mean Corpuscular HGB Conc 35.9 g/dL (31.5-36.5)
[2022-04-21 03:16] LABS: Alanine Aminotransfer (ALT/SGP 103 U/L (12-78); Albumin, Blood 2.5 g/dL (3.4-5.0); Albumin/Globulin Ratio 0.5 (0.8-1.8); Alk Phos 91 U/L (50-136); Aspartate Aminotrans (AST/SGOT 72 U/L (12-37); Bilirubin, Direct < 0.4 mg/dL (0.0-0.3); Bilirubin, Indirect 0.9 mg/dL (0.1-0.7); Bilirubin, Total 1.3 mg/dL (0.1-1.0); Cholesterol 913 mg/dL (50-200); Globulin, Blood 4.6 g/dL (2.2-4.0); Total Protein, Blood 7.1 g/dL (6.4-8.2)
--- NOTE | 2022-04-21 06:54 | NUR ---
END OF SHIFT SUMMARY. PT V/S WNL PT IS STILL ON INSULIN DRIP @2 BS HAVE REMAINED 275-325. PAIN WAS AN ISSUE AT START OF SHIFT BUT THE Q2 1MG OF DILAUDID HAS WORKED WELL. NO MORE EPISODES OF VOMITING AFTER ZOFRAN WILL REPORT OFF TO DAY RN
--- NOTE | 2022-04-21 08:00 | NUR ---
INITIAL ASSESSMENT PATIENT ALERT AND ORIENTED X 4, AFEBRILE. PATIENT COMPLAINS OF 9/10 SHARP/ STABBING ABDOMINAL PAIN. RESP WNL. PATIENT SATTING 90% AND GREATER ON RA. PATIENT IN SR TO ST, HR 90S TO LOW 100S. SBP IN THE 130S. PATIENT HAS INTERMITTENT NAUSEA BUT DENIES NAUSEA AT THIS TIME. ABD TENDER AND GUARDED. LAST BM DOCUMENTED YESTERDAY. PATIENT USES URINAL INDEPENDENTLY. SKIN APPEARS WNL. NS INFUSING AT 100 MLS/ HOUR AND INSULIN DRIP AT 2 UNITS/ HOUR. BLOOD SUGAR IN THE 200S. BED LOW, CALL LIGHT IN REACH. WILL CONTINUE TO MONITOR PATIENT FREQUENTLY THROUGHOUT SHIFT.
--- NOTE | 2022-04-21 10:15 | NUR ---
DR. JEAN-BAPTISTE UPDATED ON PATIENT STATUS. INFORMED THAT BLOOD SUGAR HAS REMAINED IN THE 200S. INFORMED THAT SODIUM 130 THIS AM. ORDER TO INCREASE NS.
[2022-04-21 10:21] LABS: Anion Gap 8 mmol/L (6-16); Blood Urea Nitrogen 10 mg/dL (8-24); Bun/Creatinine Ratio 28.5 (12.0-20.0); CO2, Blood 22 mmol/L (21-32); Chloride, Blood 104 mmol/L (98-108); Creatinine, Blood 0.35 mg/dL (0.60-1.20); Glomerular Filtration Rate 136 (60-); Potassium, Blood 3.7 mmol/L (3.5-5.5); Sodium, Blood 134 mmol/L (136-145)
[2022-04-21 10:22] LABS: Glucose, Blood 286 mg/dL (70-99)
--- NOTE | 2022-04-21 12:00 | NUR ---
PATIENT AFEBRILE. HR IN THE 90S. SBP IN THE 120S. BLOOD SUGARS REMAIN IN THE 200S. INSULIN DRIP REMAINS AT 2 UNITS/ HOUR. NS INCREASED IN AM TO 125 MLS/ HOUR. NO OTHER ACUTE CHANGES TO NOTE ON AT THIS TIME. WILL CONTINUE TO MONITOR.
--- NOTE | 2022-04-21 16:00 | NUR ---
PATIENT AFEBRILE. HR 90S TO LOW 100S. SBP 120S TO 130S. INSULIN DRIP AND NS REMAIN AT SAME RATES. NO OTHER ACUTE CHANGES TO NOTE ON AT THIS TIME. WILL CONTINUE TO MONITOR.
[2022-04-21 16:54] LABS: Anion Gap 7 mmol/L (6-16); Blood Urea Nitrogen 13 mg/dL (8-24); Bun/Creatinine Ratio 28.1 (12.0-20.0); CO2, Blood 23 mmol/L (21-32); Chloride, Blood 105 mmol/L (98-108); Creatinine, Blood 0.46 mg/dL (0.60-1.20); Glomerular Filtration Rate 125 (60-); Glucose, Blood 316 mg/dL (70-99); Potassium, Blood 4.2 mmol/L (3.5-5.5); Sodium, Blood 135 mmol/L (136-145)
--- NOTE | 2022-04-21 17:49 | NUR ---
BLOOD SUGAR 228; GLUCOMETER FROZE BEFORE ACCEPTING.
--- NOTE | 2022-04-21 19:12 | NUR ---
SHIFT SUMMARY PATIENT SLEPT MOST OF THE SHIFT. PATIENT HAS REMAINED ALERT AND ORIENTED X 4, AFEBRILE. PATIENT GIVEN PRN DILAUDID MULTIPLE TIMES FOR COMPLAINTS OF ABD PAIN. RESP REMAINED WNL. PATIENT REMAINED SR TO ST, HR 90S TO LOW 100S. SBP 120S TO 140S. PATIENT GIVEN PRN NAUSEA MEDICATION OT; PATIENT STATES THAT HE BECOMES NAUSEOUS WHEN HIS PAIN PICKS UP. ABD REMAINS TENDER. NO BM THIS SHIFT. PATIENT REMAINED NPO EXCEPT FOR A FEW ICE CHIPS. 800 MLS URINE OUT THIS SHIFT; PATIENT USES URINAL INDEPENDENTLY OR WITH 'S HELP. SKIN REMAINS WNL. PATIENT HAS CONTINUED TO REPOSITION SELF IN BED FREQUENTLY. INSULIN DRIP REMAINS AT 2 UNITS/ HOUR. NS INCREASED FROM 100 TO 125 MLS/ HOUR THIS SHIFT. BLOOD SUGARS 200S TO 300S THIS SHIFT. NO COMPLAINTS AT THIS TIME. BED LOW, CALL LIGHT IN REACH. REPORT WILL BE GIVEN TO ASSUMING GERMINATION TESTING MANAGER NURSE.
--- NOTE | 2022-04-21 19:51 | NUR ---
ASSUMED CARE PT SLEEPING, AWAKENS EASILY TO VERBAL STIMULI, A/O X 4. MOVING AND TURNING SELF IN BED. AWNSERING QUESTIONS APPRO. LUNGS CLEAR T/0 ON RA. RESP EVEN AND UNLABORED. SR 90s AND BP STABLE. BT HYPOACTIVE, DENIES N/V AT THIS TIME. C/O ABD PAIN ULQ 4/10. REQUESTING PAIN MEDS WHEN AVAILABLE. PG DAMEON INFUSING NS 125ML/HR. PIV 20G R AC INFUSING INSULIN AT 2UNITS/HR. CBG Q2HR. TALKED WITH PT REGARDING CHOLESTEROL LVL AND DIET. RESISTIVE TO INFORMATION AT THIS TIME.
[2022-04-21 22:07] LABS: Calcium, Blood 7.2 mg/dL (8.5-10.1); Creatinine, Blood 0.55 mg/dL (0.60-1.20); Potassium, Blood 4.1 mmol/L (3.5-5.5)
[2022-04-22 03:55] LABS: BASOPHILS ABSOLUTE AUTO 0.04 K/mm3 (0.00-0.23); BASOPHILS PERCENT AUTO 1 % (0-2); EOSINOPHILS PERCENT AUTO 1 % (0-6); Hematocrit 36.7 % (37.0-53.0); Hemoglobin 13.1 g/dL (13.5-17.5); IMMATURE GRAN ABSOLUTE AUTO 0.08 K/mm3 (0.00-0.10); IMMATURE GRAN PERCENT AUTO 1 % (0-1); LYMPHOCYTES ABSOLUTE AUTO 1.85 K/mm3 (0.84-5.20); LYMPHOCYTES PERCENT AUTO 22 % (21-46); MONOCYTES ABSOLUTE AUTO 0.47 K/mm3 (0.16-1.47); MONOCYTES PERCENT AUTO 6 % (4-13); Mean Corpuscular HGB 28.1 pg (26.0-34.0); Mean Corpuscular HGB Conc 35.7 g/dL (31.5-36.5); Mean Corpuscular Volume 79 fL (80-100); Mean Platelet Volume 10.7 fL (9.1-12.4); NEUTROPHILS ABSOLUTE AUTO 6.01 K/mm3 (1.96-9.15); NEUTROPHILS PERCENT AUTO 70 % (41-73); Platelet Count 158 K/mm3 (150-400); RDW Coefficient Variation 17.3 % (11.7-14.2); RDW Standard Deviation 48.9 fL (35.1-46.3); Red Blood Cell Count 4.66 M/mm3 (4.30-5.90); White Blood Cell Count 8.55 K/mm3 (4.00-11.30)
[2022-04-22 04:35] LABS: Albumin, Blood 2.2 g/dL (3.4-5.0); Anion Gap 7 mmol/L (6-16); Blood Urea Nitrogen 11 mg/dL (8-24); Bun/Creatinine Ratio 17.9 (12.0-20.0); CO2, Blood 23 mmol/L (21-32); Calcium, Blood 7.3 mg/dL (8.5-10.1); Chloride, Blood 105 mmol/L (98-108); Cholesterol 591 mg/dL (50-200); Creatinine, Blood 0.62 mg/dL (0.60-1.20); Glomerular Filtration Rate 114 (60-); Glucose, Blood 246 mg/dL (70-99); Sodium, Blood 135 mmol/L (136-145)
[2022-04-22 04:36] LABS: Triglycerides 2246 mg/dL (30-160)
--- NOTE | 2022-04-22 06:10 | NUR ---
SHIFT SUMMARY PT A/O X 4. REMAINED ON INSULIN GTT 2 UNITS/HR, CBG Q2HR, NO NEED TO TITRATE INSULIN T/O NIGHT. NS 125ML/HR CONTINUED T/O NIGHT. PT MEDICATED Q2 PRN WITH DILAUDID 1MG FOR LEFT UPPER QUAD ABD PAIN. REPORTED RELIEF WITH PAIN DOWN TO 4/10. PT STATED 'PAIN NEVER GOING AWAY'. PT TURNING IN BED AND MOVING SELF IND. DR SWANSON CALLED REGARDING PHOS 1.0, ORDERS OBTAINED. WILL REPORT OFF TO ONCOMING NURSE.
--- NOTE | 2022-04-22 11:11 | NUR ---
ASSUMPTION OF CARE: INFUSINUNITS OF HUMULIN IV RUNNING BAG, NS RUNNING, SODIUM PHOS IN DEXTROSE RUNNING WELL. PATIENT HAS BEEN SLEEPING MOST OF THE NIGHT, ON ASSUMPTION OF CARE COLBY' WAS PRESENT BEFORE WORK AND NOTICED THE DEXTROSE AND STARTED TO BECOME IRRITATED THIS ADMISSIONS GATE ATTENDANT EDUCATED PATIENT ABOUT NEED, THIS RN PLACED ON STANDBY AND CALL TO PROVIDER WHICH FAMILY APPRECIATED, DECREASE IN IRRITATION. FROM HOSPITALIST IT WAS CHANGED FROM DEXTROSE TO NS. ONCE NS BAG CAME FROM PHARM CARMINA ALERTED RN ABOUT TENDERNESS AT POWERGLIDE SITE, POWERGLIDE HAD INFILTRATED. POWERGLIDE REMOVED AND INSULIN AND NS RUNNING WITH SODIUM PHOS CHANGED TO PO HE IS TOLERATING MORE SIPS. PATIENT DENIES IMMEDIATE NEED FOR Q2 DOSING OF DILAUDED, AND NOW CARMINA PATIENT IN >3 HOUR, WILL CONTNIUE TO REASSESS, CARMINA DENIES WORSENING CHEST PAIN, RECENT CABG X 4 WITH CHRONIC CHEST PAIN. ABD PAIN RANGES FROM 7-4 WHEN MEDICATED ANYTHING BELOW 6 IS TOLERABLE. PATIENT ALERT AND ORIENTED WITH NO SIGNS OF ACUTE DISTRESS SINCE ASSUMPTION OF CARE. PATIENT CURRENLTY RESTING. NO CONCERNS FROM THIS ADMISSIONS GATE ATTENDANT AT TIME OF NOTE.
--- NOTE | 2022-04-22 14:53 | NUR ---
ASSUMPTION OF CARE PATIENT RESTING QUIETLY IN BED. PATIENT ALERT AND ORIENTED X 4. PATIENT HAS TEMP OF 99.4 DEGREES FAHRENHEIT. PATIENT RECEIVING PRN PAIN MEDICATION FOR COMPLAINTS OF PAIN IN ABD. RESP WNL. SATTING 90% AND GREATER ON RA. PATIENT IN SR, HR IN THE 90S. SBP IN THE 1-TEENS. INTERMITTENT NAUSEA; DENIES AT THIS TIME. ABD TENDER AND GUARDED. LAST BM DOCUMENTED 2 DAYS AGO. PATIENT USES URINAL INDEPENDENTLY. INSULIN DRIP INFUSING AT 2 UNITS/ HOUR AND NS AT 125 MLS/ HOUR. BED LOW, CALL LIGHT IN REACH. WILL CONTINUE TO MONITOR.
[2022-04-22 14:56] LABS: Bun/Creatinine Ratio 19.6 (12.0-20.0); Calcium, Blood 7.7 mg/dL (8.5-10.1); Creatinine, Blood 0.56 mg/dL (0.60-1.20); Potassium, Blood 3.5 mmol/L (3.5-5.5)
--- NOTE | 2022-04-22 16:00 | NUR ---
PATIENT HAS TEMP OF 98.9 DEGREES FAHRENHEIT. HR 80S TO 90S. SBP LOW 100S TO 120S. BLOOD SUGAR OF 147. DR. JEAN-BAPTISTE INFORMED. INSULIN DRIP PLACED ON SB.
--- NOTE | 2022-04-22 18:25 | NUR ---
SHIFT SUMMARY PATIENT SLEPT MOST OF THE SHIFT. PATIENT REMAINED ALERT AND ORIENTED X 4. PATIENT HAS TMAX OF 99.4 DEGREES FAHRENHEIT. PATIENT RECEIVED PRN PAIN MED FOR COMPLAINTS OF ABD PAIN, BUT PAIN MUCH IMPROVED FROM YESTERDAY. RESP REMAINED WNL. PATIENT REMAINED IN SR, HR 80S TO 90S. SBP LOW 100S TO 130S. NO COMPLAINTS OF NAUSEA SINCE ASSUMPTION OF CARE. NO BM THIS SHIFT. PATIENT CONTINUES TO TOLERATE ICE CHIPS. 750 MLS OF URINE OUTPUT THIS SHIFT. NO CHANGES TO SKIN NOTED. PATIENT REPOSITIONED SELF FREQUENTLY THROUGHOUT SHIFT. NS INFUSING AT 125 MLS/ HOUR. DR. JEAN-BAPTISTE CALLED LAST TWO BLOOD SUGARS 147 AND 151. INSULIN DRIP DC'D. DR. JEAN-BAPTISTE INSTRUCTED TO CONTINUE TO CHECK BLOOD SUGARS Q2H AND TO TREAT WITH HUMULIN R SS Q6H. DR. JEAN-BAPTISTE WILL REASSESS IN AM ABOUT ADVANCING DIET. PATIENT CHANGED TO PCU STATUS. PATIENT HAS NO COMPLAINTS AT THIS TIME. BED LOW, CALL LIGHT IN REACH. JUST LEFT TO GET REST AFTER UPDATED ON PLAN. WILL GIVE REPORT TO ONCOMING ANESTHESIOLOGIST ASSISTANT CERTIFIED NURSE SHORTLY.
--- NOTE | 2022-04-22 19:00 | NUR ---
ASSUMED CARE PT A/O X4. TALKING AND FOLLOWING DIRECTIONS. ABLE TO MOVE SELF IN BED SIDE TO SIDE. C/O 03/16 PAIN IN LEFT UPPER ABD. USING URINAL TO VOID. VSS. NS INFUSING AT 125ML/HR. SEE SHIFT ASSESSMENT FOR FULL ASSESSMENT.
[2022-04-23 04:00] LABS: BASOPHILS ABSOLUTE AUTO 0.03 K/mm3 (0.00-0.23); BASOPHILS PERCENT AUTO 1 % (0-2); EOSINOPHILS ABSOLUTE AUTO 0.17 K/mm3 (0.00-0.68); EOSINOPHILS PERCENT AUTO 3 % (0-6); Hematocrit 35.4 % (37.0-53.0); Hemoglobin 12.3 g/dL (13.5-17.5); IMMATURE GRAN ABSOLUTE AUTO 0.04 K/mm3 (0.00-0.10); IMMATURE GRAN PERCENT AUTO 1 % (0-1); LYMPHOCYTES ABSOLUTE AUTO 2.03 K/mm3 (0.84-5.20); LYMPHOCYTES PERCENT AUTO 31 % (21-46); MONOCYTES ABSOLUTE AUTO 0.38 K/mm3 (0.16-1.47); MONOCYTES PERCENT AUTO 6 % (4-13); Mean Corpuscular HGB 27.5 pg (26.0-34.0); Mean Corpuscular HGB Conc 34.7 g/dL (31.5-36.5); Mean Corpuscular Volume 79 fL (80-100); Mean Platelet Volume 11.5 fL (9.1-12.4); NEUTROPHILS ABSOLUTE AUTO 3.88 K/mm3 (1.96-9.15); NEUTROPHILS PERCENT AUTO 59 % (41-73); Platelet Count 101 K/mm3 (150-400); RDW Coefficient Variation 17.3 % (11.7-14.2); RDW Standard Deviation 50.1 fL (35.1-46.3); Red Blood Cell Count 4.48 M/mm3 (4.30-5.90); White Blood Cell Count 6.53 K/mm3 (4.00-11.30)
[2022-04-23 04:32] LABS: Anion Gap 8 mmol/L (6-16); Blood Urea Nitrogen 9 mg/dL (8-24); Bun/Creatinine Ratio 33.1 (12.0-20.0); CO2, Blood 22 mmol/L (21-32); Calcium, Blood 7.2 mg/dL (8.5-10.1); Chloride, Blood 106 mmol/L (98-108); Cholesterol 482 mg/dL (50-200); Creatinine, Blood 0.27 mg/dL (0.60-1.20); Glomerular Filtration Rate 147 (60-); Glucose, Blood 214 mg/dL (70-99); Phosphorus, Blood 1.2 mg/dL (2.5-4.9); Potassium, Blood 3.3 mmol/L (3.5-5.5); Sodium, Blood 136 mmol/L (136-145); Triglycerides 1605 mg/dL (30-160)
--- NOTE | 2022-04-23 06:44 | NUR ---
SHIFT SUMMARY PT A/O X4. ABLE TO COMMUNICATE NEEDS. NO ACUTE EVENTS. SLEPT WHEN UNDISTURBED. C/O 03/16 PAIN IN ABD. MEDICATED W/ IV DILAUDID Q2-3HR WITH GOOD RESULTS. DENIES N/V. CBG STABLE T/O NIGHT. VOIDING IN URINAL IND. VSS. NS INFUSING 125ML/HR. AM LABS PHOS 1.2 AND K+ 3.3. KPHOS INFUSING 100ML/HR.
--- NOTE | 2022-04-23 07:51 | NUR ---
AM NOTE: ASSUMED CARE OF PT AT 0700. PT IS ALERT AND ORIENTED TIMES FOUR. THE PT HAS COMPLAINTS OF MILD ABD TENDERNESS IN THE LUQ WITH RATING AT 4/10. PT TO BE MEDICATED PER EMAR AT 0800. THE PT HAS CLEAR LUNG SOUNDS T/O WITH O2 LEVELS MAINTAINING 94<. THE PT HAS HR IN THE 80'S WITH SBP IN THE 120-130'S; S1/S2 HEARD EASILY ON ASCULTATION. THE PT CURRENTLY HAS AN NPO STATUS, THE PT'S , MAYE, HAS REQUESTED A KETO DIET WHEN THE PT IS PROGRESSED TO A DIET ORDER. THE PT HAS WARM EXTREMITIES AND CAP REFIL REMAINS < 3 SECONDS. THE PT IS INDEPENDENT WITH BED MOBILITY AND USES THE URINAL AT BEDSIDE. THE PT'S AT BEDSIDE AT 0755. JR CONTINUE TO MONITOR THROUGHOUT THE DAY.
--- NOTE | 2022-04-23 08:48 | NUR ---
PT TRANSFERRED: PT TRANSFERRED FROM ICU TO PCU 2 @ 0840 VIA WHEELCHAIR. , MAYE, ACCOMPANIED DURING TRANSFER AND UPDATED ON NEW NURSE.
--- NOTE | 2022-04-23 18:13 | NUR ---
SHIFT SUMMARY; ICU TRANSFER; BROUGHT TO PCU VIA WHEELCHAIR. A/A/OX4, NS INFUSING AT 125ML/HR. REMAIN NPO THROUGHOUT DAY WITH SMALL SIPS OF WATER OR ICE CHIPS OK PER DR. JEAN-BAPTISTE. WILL DISCUSS ADVANCING DIET TOMORROW. INDEPENDANT IN ROOM. SPOUSE AT BEDSIDE. DISCUSSES MULTIPLE TIMES NEED FOR CARNIVOROUS KETO DIET. STATES "I'M FINE, I'VE HAD PANCREATITIS 9X". NO INSULIN GIVEN DURING SHIFT CHEMBG WAS SLIGHTLY ELEVATED AND IS TO REMAIN NPO UNTIL TOMORROW. WILL CONTINUE TO MONITOR AND TREAT UNTIL CHANGE OF SHIFT.
--- NOTE | 2022-04-23 19:30 | NUR ---
ASSUMED CARE. PT VISITING WITH . BOTH VERY VERBAL ON THEIR CONCERNS AND WANTS FOR THE CARE THEY RECEIVED. PT C/O BEING HUNGRY AND WANTING TO START CLEAR LIQUIDS. STATES HE KNOWNS THE ROUTINE HE HAS HAD PANCREATITIS MULTIPLE TIMES. STATES HIS PAIN STOPPED YESTERDAY AND HE WOULD LIKE TO START TO EAT AGAIN. WILL CONTACT MD AND ASK FOR ADT ORDER. REST OF ASSESSMENT BENIGN. PATIENT DENIED ANY OTHER CONCERNS OTHER THAN HIS DIET, NOT WANTING ANYTHING SUGAR AND TO KEEP HIS BLOOD SUGAR UNDER CONTROL.
--- NOTE | 2022-04-23 20:40 | NUR ---
SPOKE TO DR. WRIGHT REGARDING REQUEST FOR DIET CHANGE. ORDER TO ADVANCE DIET TOLERATED. CHICKEN BROTH GIVEN PER REQUEST.
--- NOTE | 2022-04-24 02:17 | NUR ---
SPOKE TO DR. WRIGHT REGARDING CHANGING ORDERS NOW THAT THE PATIENT IS TOLERATING CLEAR LIQUIDS. IVF DC'D.
[2022-04-24 04:11] LABS: BASOPHILS ABSOLUTE AUTO 0.06 K/mm3 (0.00-0.23); BASOPHILS PERCENT AUTO 1 % (0-2); EOSINOPHILS ABSOLUTE AUTO 0.16 K/mm3 (0.00-0.68); EOSINOPHILS PERCENT AUTO 2 % (0-6); Hematocrit 37.6 % (37.0-53.0); IMMATURE GRAN ABSOLUTE AUTO 0.11 K/mm3 (0.00-0.10); IMMATURE GRAN PERCENT AUTO 2 % (0-1); LYMPHOCYTES ABSOLUTE AUTO 1.88 K/mm3 (0.84-5.20); LYMPHOCYTES PERCENT AUTO 28 % (21-46); MONOCYTES ABSOLUTE AUTO 0.47 K/mm3 (0.16-1.47); MONOCYTES PERCENT AUTO 7 % (4-13); Mean Corpuscular HGB 26.8 pg (26.0-34.0); Mean Corpuscular HGB Conc 34.6 g/dL (31.5-36.5); Mean Corpuscular Volume 78 fL (80-100); Mean Platelet Volume 10.9 fL (9.1-12.4); NEUTROPHILS ABSOLUTE AUTO 4.16 K/mm3 (1.96-9.15); NEUTROPHILS PERCENT AUTO 61 % (41-73); Platelet Count 128 K/mm3 (150-400); RDW Coefficient Variation 17.5 % (11.7-14.2); RDW Standard Deviation 49.5 fL (35.1-46.3); Red Blood Cell Count 4.85 M/mm3 (4.30-5.90); White Blood Cell Count 6.84 K/mm3 (4.00-11.30)
[2022-04-24 04:40] LABS: Albumin, Blood 2.4 g/dL (3.4-5.0); Anion Gap 10 mmol/L (6-16); Blood Urea Nitrogen 7 mg/dL (8-24); Bun/Creatinine Ratio 14.1 (12.0-20.0); CHOL/HDL RATIO 14.1; CO2, Blood 19 mmol/L (21-32); Calcium, Blood 8.1 mg/dL (8.5-10.1); Chloride, Blood 108 mmol/L (98-108); Cholesterol 535 mg/dL (50-200); Glomerular Filtration Rate 122 (60-); Glucose, Blood 225 mg/dL (70-99); HDL Cholesterol 38 mg/dL (>39); LDL/HDL RATIO Unable to Calculate; Low Density Lipoprotein Chol Unable to Calculate mg/dL (0-110); Phosphorus, Blood 1.9 mg/dL (2.5-4.9); Potassium, Blood 3.7 mmol/L (3.5-5.5); Sodium, Blood 137 mmol/L (136-145); Triglycerides 1296 mg/dL (30-160); Very Low Density Lipoprot Chol Unable to Calculate mg/dL (6-32)
--- NOTE | 2022-04-24 05:34 | NUR ---
SHIFT SUMMARY: AOX3, INDEPENDANT IN THE ROOM. NO PAIN THIS SHIFT. NO NAUSEA. DIET ADVANCED TO CLEAR LIQUID AT START OF SHIFT, TOLERATED WATER AND BROTH. ADVANCED DIET TO FULL THIS AM FOR BREAKFAST. IVF STOPPED. BLOOD SUGARS HAVE STAYED AROUND 170 TILL THIS AM LABS WHERE IT IS 255. CHEM BG CHECKS CHANGED TO ACHS ALONG WITH SLIDING SCALE TO MATCH. PATIENT IS WANTING TO ADVANCE HIS DIET AND BE ABLE TO BE DISCHARGED HE STATES HE IS DOING BETTER. VS HAVE REMAINED STABLE. NO OTHER CHANGES TO REPORT. WILL REPORT TO ONCOMING SHIFT.
[2022-04-24] MEDS ORDERED: CREON DR 12,001 EACH PO (10:05)
--- NOTE | 2022-04-24 12:11 | NUR ---
DISCHARGE INSTRUCTIONS GIVEN WITH CLEAR UNDERSTANDING. RX FAXED TO [facility] IN [place].
== END 2022-04-24 11:30 | disposition home or self-care (01) | DRG 439 ==
LOC: ER 10:09 → ICUW 16:21 → PCU 04-23 08:47
PROVIDERS: Physician Assistant; ADMIT Family Medicine
DX: K85.90 Acute pancreatitis without necrosis or infection, unspecified (principal); E87.1 Hypo-osmolality and hyponatremia; E87.2 Acidosis; E78.1 Pure hyperglyceridemia; K86.1 Other chronic pancreatitis; I10 Essential (primary) hypertension; E78.00 Pure hypercholesterolemia, unspecified; D64.9 Anemia, unspecified; E83.39 Other disorders of phosphorus metabolism; I25.10 Atherosclerotic heart disease of native coronary artery without angina pectoris; E11.65 Type 2 diabetes mellitus with hyperglycemia; R94.5 Abnormal results of liver function studies; D72.829 Elevated white blood cell count, unspecified; E87.6 Hypokalemia; D69.6 Thrombocytopenia, unspecified; Z68.32 Body mass index [BMI] 32.0-32.9, adult; Z95.1 Presence of aortocoronary bypass graft; Z88.8 Allergy status to other drugs, medicaments and biological substances; Z91.048 Other nonmedicinal substance allergy status; Z98.890 Other specified postprocedural states; Z90.49 Acquired absence of other specified parts of digestive tract; Z98.52 Vasectomy status; Z79.4 Long term (current) use of insulin; Z79.899 Other long term (current) drug therapy
CPT/HCPCS: 36415; 74177; 80048; 80053; 80061; 80069; 80076; 81001; 82465; 82947; 83036; 83690; 84478; 85025; 87086; 96361; 96374-59; 96375; 96376; 99285-25; A9270; C1751; C9113; J1170; J1650; J1815; J1885; J2405; J2550; J2765; J7030; J7040; J7060; Q9967

== ENCOUNTER → 2022-10-28 | Outpatient (CLI) | payer BC | END | disposition home or self-care (01) | LOC: LAB SHORT 08:37 → LAB 08:37 | DX: L08.9 Local infection of the skin and subcutaneous tissue, unspecified (principal) | CPT/HCPCS: 87070; 87077; 87147; 87186; 87205 ==

== ENCOUNTER → 2024-08-19 | Outpatient (CLI) | payer SELFPAY ==
[2024-08-19 14:01] LABS: CHOL/HDL RATIO 12.6; Cholesterol 857 mg/dL (50-200); HDL Cholesterol 68 mg/dL (>39); LDL/HDL RATIO Unable to Calculate; Low Density Lipoprotein Chol Unable to Calculate mg/dL (0-110); Triglycerides >4000 mg/dL (30-160); Very Low Density Lipoprot Chol Unable to Calculate mg/dL (6-32)
[2024-08-19 14:28] LABS: BASOPHILS ABSOLUTE AUTO 0.05 K/mm3 (0.00-0.23); BASOPHILS PERCENT AUTO 1 % (0-2); EOSINOPHILS ABSOLUTE AUTO 0.24 K/mm3 (0.00-0.68); EOSINOPHILS PERCENT AUTO 3 % (0-6); Hematocrit 40.8 % (37.0-53.0); Hemoglobin 14.9 g/dL (13.5-17.5); IMMATURE GRAN ABSOLUTE AUTO 0.03 K/mm3 (0.00-0.10); IMMATURE GRAN PERCENT AUTO 0 % (0-1); LYMPHOCYTES ABSOLUTE AUTO 2.48 K/mm3 (0.84-5.20); LYMPHOCYTES PERCENT AUTO 35 % (21-46); MONOCYTES ABSOLUTE AUTO 0.42 K/mm3 (0.16-1.47); MONOCYTES PERCENT AUTO 6 % (4-13); Mean Corpuscular HGB 29.7 pg (26.0-34.0); Mean Corpuscular Volume 81 fL (80-100); NEUTROPHILS ABSOLUTE AUTO 3.89 K/mm3 (1.96-9.15); NEUTROPHILS PERCENT AUTO 55 % (41-73); RDW Coefficient Variation 13.7 % (11.7-14.2); RDW Standard Deviation 39.8 fL (35.1-46.3); Red Blood Cell Count 5.01 M/mm3 (4.30-5.90); White Blood Cell Count 7.11 K/mm3 (4.00-11.30)
[2024-08-19 14:32] LABS: Platelet Count 208 K/mm3 (150-400)
[2024-08-19 14:39] LABS: Albumin, Blood 3.2 g/dL (3.4-5.0); Albumin/Globulin Ratio 0.6 (0.8-1.8); Bilirubin, Total 0.9 mg/dL (0.1-1.0); Bun/Creatinine Ratio 41.3 (12.0-20.0); Calcium, Blood 9.6 mg/dL (8.5-10.1); Creatinine, Blood 0.44 mg/dL (0.60-1.20); Globulin, Blood 5.1 g/dL (2.2-4.0); Potassium, Blood 3.6 mmol/L (3.5-5.5); Total Protein, Blood 8.3 g/dL (6.4-8.2)
[2024-08-19 15:18] LABS: Mean Corpuscular HGB Conc 36.5 g/dL (31.5-36.5)
== END ==
LOC: LAB SHORT 12:26 → LAB 12:26
PROVIDERS: Chiropractor
DX: I25.10 Atherosclerotic heart disease of native coronary artery without angina pectoris (principal); E11.9 Type 2 diabetes mellitus without complications; K85.90 Acute pancreatitis without necrosis or infection, unspecified; Z79.4 Long term (current) use of insulin
CPT/HCPCS: 80053; 80061; 83036; 83690; 85025

== ENCOUNTER → 2024-09-03 | Outpatient (CLI) | payer OTHER ==
[2024-09-03 14:12] LABS: BASOPHILS ABSOLUTE AUTO 0.06 K/mm3 (0.00-0.23); BASOPHILS PERCENT AUTO 1 % (0-2); EOSINOPHILS ABSOLUTE AUTO 0.19 K/mm3 (0.00-0.68); EOSINOPHILS PERCENT AUTO 2 % (0-6); Hemoglobin 15.4 g/dL (13.5-17.5); IMMATURE GRAN ABSOLUTE AUTO 0.19 K/mm3 (0.00-0.10); IMMATURE GRAN PERCENT AUTO 2 % (0-1); LYMPHOCYTES ABSOLUTE AUTO 2.96 K/mm3 (0.84-5.20); LYMPHOCYTES PERCENT AUTO 29 % (21-46); MONOCYTES ABSOLUTE AUTO 0.61 K/mm3 (0.16-1.47); MONOCYTES PERCENT AUTO 6 % (4-13); Mean Corpuscular HGB Conc 34.2 g/dL (31.5-36.5); Mean Corpuscular Volume 85 fL (80-100); Mean Platelet Volume 10.7 fL (9.1-12.4); NEUTROPHILS ABSOLUTE AUTO 6.19 K/mm3 (1.96-9.15); NEUTROPHILS PERCENT AUTO 61 % (41-73); Platelet Count 198 K/mm3 (150-400); RDW Coefficient Variation 13.7 % (11.7-14.2); RDW Standard Deviation 42.2 fL (35.1-46.3); Red Blood Cell Count 5.31 M/mm3 (4.30-5.90)
[2024-09-03 15:25] LABS: Albumin, Blood 3.6 g/dL (3.4-5.0); Albumin/Globulin Ratio 0.8 (0.8-1.8); Bilirubin, Total 0.7 mg/dL (0.1-1.0); Bun/Creatinine Ratio 30.6 (12.0-20.0); Calcium, Blood 9.3 mg/dL (8.5-10.1); Creatinine, Blood 1.08 mg/dL (0.60-1.20); Globulin, Blood 4.4 g/dL (2.2-4.0); Potassium, Blood 4.6 mmol/L (3.5-5.5)
== END ==
LOC: LAB SHORT 14:08
PROVIDERS: Internal Medicine
DX: R73.9 Hyperglycemia, unspecified (principal)
CPT/HCPCS: 80053; 85025; 85651; 86140

== ENCOUNTER → 2024-10-12 | Outpatient (CLI) | payer OTHER ==
[2024-10-18 14:11] LABS: PANCREATIC ELASTASE,FECAL 57 ug/g (>=100)
== END ==
LOC: LAB SHORT 15:33 → LAB 15:33 → LAB SHORT 10-14 15:33
PROVIDERS: Student in an Organized Health Care Education/Training Program
DX: Z87.19 Personal history of other diseases of the digestive system (principal)
CPT/HCPCS: 82653